=== PATIENT | male | born 1930 | race African-American/Black ===

== ENCOUNTER 2017-04-05 03:59 | Inpatient (IN) | payer BC, OTHER ==
[~2017-04-05] VITALS: Ht 170.2 cm; Wt 96.6 kg
[~2017-04-05 03:59] MED LIST: ASPI-1073 PO; FURO-151 PO; LISI-604 PO; LOSA50TA3 PO; PLAVIX PO; POTA-9 PO; SIMV40TA5 PO; TAMS-11 PO
[2017-04-05] MEDS ORDERED: METHYLPREDNISOLONE SOD SUCC 125 MG/2 ML VIAL IV SCH (04:52)
[2017-04-05] MEDS ORDERED: IPRATROPIUM BROMIDE (0.02%) 0.5MG/2.5ML NEB HHN SCH (04:52)
[2017-04-05] MEDS ORDERED: ALBUTEROL (0.083%) 2.5MG/3ML NEB HHN SCH (04:52)
[2017-04-05] MEDS ORDERED: ALBUTEROL (0.5%) 2.5MG/0.5ML NEB HHN ONE (05:11)
[2017-04-05 05:44] LABS: EOSINOPHILS % 6.2 % (0.0-5.0); HEMATOCRIT. 33.5 % (42.0-52.0); HEMOGLOBIN. 11.2 g/dL (14.0-18.0); LYMPHOCYTES % 12.3 % (20.0-50.0); MEAN CORPUSCULAR VOLUME 83.7 fL (80.0-94.0); MEAN PLATELET VOLUME 7.7 fl (7.4-10.4); MONOCYTES % 11.2 % (2.0-8.0); NEUTROPHILS % 69.3 % (40.0-76.0); PLATELET 223 x1000/uL (130-400); RED BLOOD CELL COUNT 4.01 mill/uL (4.7-6.1); RED CELL DISTRIBUTION WIDTH 16.2 % (11.6-14.6)
[2017-04-05 06:02] LABS: CARBON DIOXIDE 27 mEq/L (21-32); CHLORIDE 108 mEq/L (98-107); TROPONIN I < 0.02 ng/mL (0.00-0.04)
[2017-04-05 06:17] LABS: BG BASE EXCESS 0.4 mmol/L (-2.0-2.0); BG CARBOXYHEMOGLOBIN 0.3 % (0.5-1.5); BG DEOXYHEMOGLOBIN 3.3 % (0.0-5.0); BG FRACTION INSPIRED OXYGEN 28; BG HCO3 ACT 24.6 mmol/L (22.0-26.0); BG METHEMOGLOBIN 0.1 % (0.0-1.5); BG OXYGEN SATURATION 96.7 % (92.0-98.5); BG OXYHEMOGLOBIN 96.3 % (94.0-97.0); BG PCO2 38.1 mmHg (35.0-45.0); BG PH 7.428 (7.350-7.450); BG PO2 91.7 mmHg (75.0-100.0); BG SAMPLE SITE RIGHT RADIAL; BG TOTAL HEMOGLOBIN 11.9 g/dL (12.0-18.0); BG VENT MODE NASAL CANNULA
[2017-04-05] MEDS: IPRATROPIUM/ALBUTEROL 0.5-3(2.5)MG/3ML NEB HHN SCH ×5 (09:20→23:47)
[2017-04-05 10:25] VITALS: BP 152/84
[2017-04-05] MEDS ORDERED: P20 PO (11:26)
[2017-04-05] MEDS ORDERED: CLOP75TA33 PO (11:26)
[2017-04-05] MEDS ORDERED: DOCU-138 PO (11:26)
[2017-04-05] MEDS ORDERED: MOME13HF2 INH (11:26)
[2017-04-05] MEDS ORDERED: PROCARDIA XL PO (11:26)
[2017-04-05] MEDS ORDERED: ASPI-1159 PO (11:26)
[2017-04-05] MEDS ORDERED: CLONIDINE 0.1MG TABLET PO PRN (15:00)
[2017-04-05] MEDS ORDERED: ACETAMINOPHEN 325MG TABLET PO PRN (15:00)
[2017-04-05] MEDS ORDERED: HYDROCODONE/ACETAMINOPHEN 5/325MG TABLET PO PRN (15:00)
[2017-04-05] MEDS ORDERED: ONDANSETRON HCL 4MG/2ML VIAL IV PRN (15:00)
[2017-04-05] MEDS ORDERED: IPRATROPIUM/ALBUTEROL 0.5-3(2.5)MG/3ML NEB INH PRN (15:00)
[2017-04-05 16:00] VITALS: BP 157/78
[2017-04-05 20:00] VITALS: BP 162/91
[2017-04-05] MEDS ORDERED: RAMI10CA19 PO (20:49)
[2017-04-05] MEDS ORDERED: FURO-152 PO (20:49)
[2017-04-05] MEDS ORDERED: ENOXAPARIN 40MG/0.4ML SYR SUBCUT SCH (21:00)
[2017-04-05] MEDS: LOSARTAN POTASSIUM 50 MG TABLET PO SCH (22:56)
[2017-04-05] MEDS: FUROSEMIDE 40MG/4ML VIAL IVP SCH (22:57)
[2017-04-05 23:25] LABS: CREATINE KINASE 225 IU/L (39-308); TROPONIN I < 0.02 ng/mL (0.00-0.04)
[2017-04-06] VITALS: BP 156/86
[2017-04-06] MEDS: IPRATROPIUM/ALBUTEROL 0.5-3(2.5)MG/3ML NEB HHN SCH ×4 (02:54→17:10)
[2017-04-06 04:00] VITALS: BP 142/78
[2017-04-06 07:28] LABS: CREATINE KINASE 239 IU/L (39-308); HDL CHOLESTEROL 64 mg/dL (40-59); LDL CHOLESTEROL 80 mg/dL (5-100); T4 FREE 0.93 ng/dL (0.76-1.46); TROPONIN I < 0.02 ng/mL (0.00-0.04)
[2017-04-06 07:58] LABS: HEMATOCRIT. 29.2 % (42.0-52.0); HEMOGLOBIN. 9.8 g/dL (14.0-18.0); MEAN CORPUSCULAR HEMOGLOBIN 28.2 pg (28.0-32.0); MEAN CORPUSCULAR VOLUME 84.4 fL (80.0-94.0); MEAN PLATELET VOLUME 8.5 fl (7.4-10.4); PLATELET 215 x1000/uL (130-400); RED BLOOD CELL COUNT 3.46 mill/uL (4.7-6.1); RED CELL DISTRIBUTION WIDTH 16.2 % (11.6-14.6)
[2017-04-06 08:00] VITALS: BP 142/79
[2017-04-06] MEDS ORDERED: PREDNISONE 20MG TABLET PO SCH ×2 (09:00→12:00)
[2017-04-06] MEDS ORDERED: POTASSIUM CHLORIDE 20MEQ TABLET SR PO SCH (09:00)
[2017-04-06] MEDS ORDERED: ASPIRIN 81MG TABLET PO SCH (09:00)
[2017-04-06] MEDS ORDERED: TAMSULOSIN HCL 0.4MG SR CAPSULE PO SCH (09:00)
[2017-04-06] MEDS: FUROSEMIDE 40MG/4ML VIAL IVP SCH (10:17)
[2017-04-06] MEDS: LOSARTAN POTASSIUM 50 MG TABLET PO SCH (10:18)
[2017-04-06 12:00] VITALS: BP 126/65
[2017-04-06] MEDS ORDERED: AZITHROMYCIN 500 MG TABLET PO SCH (12:00)
[2017-04-06 13:35] LABS: BG BASE EXCESS 1.8 mmol/L (-2.0-2.0); BG CARBOXYHEMOGLOBIN 0.3 % (0.5-1.5); BG DEOXYHEMOGLOBIN 5.9 % (0.0-5.0); BG FRACTION INSPIRED OXYGEN 21; BG HCO3 ACT 25.9 mmol/L (22.0-26.0); BG METHEMOGLOBIN 0.2 % (0.0-1.5); BG OXYGEN SATURATION 94.1 % (92.0-98.5); BG OXYHEMOGLOBIN 93.6 % (94.0-97.0); BG PCO2 38.9 mmHg (35.0-45.0); BG PH 7.442 (7.350-7.450); BG PO2 69.7 mmHg (75.0-100.0); BG SAMPLE SITE RIGHT RADIAL; BG TOTAL HEMOGLOBIN 12.3 g/dL (12.0-18.0); BG VENT MODE ROOM AIR
[2017-04-06 16:00] VITALS: BP 140/66
[2017-04-06 18:23] VITALS: BP 149/69
[2017-04-07 10:09] LABS: PLATELET ESTIMATE NORMAL
== END 2017-04-06 18:37 | disposition home health service (06) | DRG 682 ==
LOC: ER 03:59 → 7WST 05:50 → ENRESERV 09:16
PROVIDERS: ADMIT Internal Medicine; ATTEND Internal Medicine
DX: N17.9 Acute kidney failure, unspecified (principal); I50.33 Acute on chronic diastolic (congestive) heart failure; J44.1 Chronic obstructive pulmonary disease with (acute) exacerbation; D64.9 Anemia, unspecified; I11.0 Hypertensive heart disease with heart failure; E87.6 Hypokalemia; I87.8 Other specified disorders of veins; I25.10 Atherosclerotic heart disease of native coronary artery without angina pectoris; Z79.82 Long term (current) use of aspirin; Z79.899 Other long term (current) drug therapy; Z95.5 Presence of coronary angioplasty implant and graft
CPT/HCPCS: 36415; 36600; 71010; 80048; 80053; 80061; 82375; 82550; 82805; 83605; 83880; 84439; 84443; 84484; 85025; 87040; 93005; 94640; 94664; 96374; 99291; J1650; J1940; J2405; J2930; J7512; J7611; J7620

== ENCOUNTER 2018-10-11 15:34 | Inpatient (IN) | payer BC ==
[~2018-10-11] VITALS: Ht 175.3 cm; Wt 108.9 kg
[~2018-10-11 15:34] MED LIST changes: +CLOP75TA33 PO; +DOCU-138 PO; +MOME13HF2 INH; -PLAVIX PO; +PROCARDIA XL PO; +RAMI10CA19 PO
[2018-10-11] MEDS ORDERED: ASPIRIN 81MG TABLET PO ONE (15:45)
[2018-10-11] MEDS ORDERED: NITROGLYCERIN 0.4MG TABLET SL SL PRN (15:45)
[2018-10-11 15:59] LABS: BG BILEVEL POS AIRWAY PRESSURE 16/5; BG CARBOXYHEMOGLOBIN 0.6 % (0.5-1.5); BG DEOXYHEMOGLOBIN 1.2 % (0.0-5.0); BG FRACTION INSPIRED OXYGEN 50; BG HCO3 ACT 25.1 mmol/L (22.0-26.0); BG METHEMOGLOBIN 0.1 % (0.0-1.5); BG OXYGEN SATURATION 98.8 % (92.0-98.5); BG OXYHEMOGLOBIN 98.1 % (94.0-97.0); BG PCO2 38.3 mmHg (35.0-45.0); BG PH 7.435 (7.350-7.450); BG SAMPLE SITE RIGHT RADIAL; BG TOTAL HEMOGLOBIN 12.7 g/dL (12.0-18.0); BG VENT MODE MASK - BIPAP
[2018-10-11 16:03] LABS: CHLORIDE 110 mEq/L (98-107)
[2018-10-11 16:08] LABS: BASOPHILS % 1.2 % (0.0-2.0); EOSINOPHILS % 10.3 % (0.0-5.0); HEMATOCRIT. 38.8 % (42.0-52.0); HEMOGLOBIN. 12.8 g/dL (14.0-18.0); LYMPHOCYTES % 15.5 % (20.0-50.0); MEAN CORPUSCULAR HEMOGLOBIN 29.4 pg (28.0-32.0); MEAN CORPUSCULAR VOLUME 88.9 fL (80.0-94.0); MEAN PLATELET VOLUME 8.4 fl (7.4-10.4); PLATELET 260 x1000/uL (130-400); RED BLOOD CELL COUNT 4.37 mill/uL (4.7-6.1); RED CELL DISTRIBUTION WIDTH 15.8 % (11.6-14.6)
[2018-10-11] MEDS ORDERED: ALBUTEROL (0.083%) 2.5MG/3ML NEB HHN ONE (17:15)
[2018-10-11] MEDS ORDERED: METHYLPREDNISOLONE SOD SUCC 125 MG/2 ML VIAL IV ONE (17:15)
[2018-10-11] MEDS ORDERED: SODIUM CHLORIDE 0.9% 1,000 ML IV ONE (18:00)
[2018-10-11] MEDS ORDERED: DILTIAZEM HCL 5MG/ML 5ML VIAL IV ONE (18:15)
[2018-10-11] MEDS ORDERED: DILTIAZEM HCL 90MG TABLET PO ONE (18:30)
[2018-10-11] MEDS ORDERED: DILTIAZEM HCL 90MG TABLET PO NR (20:00)
[2018-10-11 22:43] VITALS: BP 162/90
[2018-10-12] VITALS (12 sets, daily range): BP systolic 103–171; BP diastolic 63–118
[2018-10-12] MEDS ORDERED: TEMAZEPAM 15MG CAPSULE PO PRN
[2018-10-12] MEDS ORDERED: RAMI2.5C10 MT (00:35)
[2018-10-12] MEDS ORDERED: SIMV40TA5 MT (00:35)
[2018-10-12] MEDS ORDERED: FURO40TA5 PO (00:35)
[2018-10-12] MEDS ORDERED: CLOP75TA33 MT (00:35)
[2018-10-12] MEDS ORDERED: RAMI10CA19 PO (00:54)
[2018-10-12] MEDS ORDERED: LEVOFLOXACIN 500MG PREMIX 100 ML IV SCH ×2 (01:00)
[2018-10-12] MEDS: METHYLPREDNISOLONE SOD SUCC 40 MG/ML VIAL IV SCH ×4 (01:04→21:25)
[2018-10-12] MEDS: CLONIDINE 0.1MG TABLET PO PRN (03:43)
[2018-10-12] MEDS: IPRATROPIUM/ALBUTEROL 0.5-3(2.5)MG/3ML NEB HHN SCH ×5 (04:52→21:28)
[2018-10-12] MEDS ORDERED: MEDICATION NOT ON FORMULARY EA (Ramipril 10 MG) PO SCH (09:00)
[2018-10-12] MEDS ORDERED: MEDICATION NOT ON FORMULARY EA (Clopidogrel Bisulfate (Clopidogrel) 75 MG) PO SCH (09:00)
[2018-10-12] MEDS ORDERED: MEDICATION NOT ON FORMULARY EA (Furosemide 40 MG) PO SCH (09:00)
[2018-10-12] MEDS ORDERED: ASPIRIN 81 MG PO SCH (09:00)
[2018-10-12] MEDS ORDERED: PROCARDIA 60 MG PO SCH (09:00)
[2018-10-12] MEDS: ASPIRIN 81MG TABLET PO SCH (09:38)
[2018-10-12] MEDS: CLOPIDOGREL 75MG TABLET PO SCH (09:38)
[2018-10-12] MEDS: ENOXAPARIN 40MG/0.4ML SYR SUBCUT SCH (09:38)
[2018-10-12] MEDS: POTASSIUM CHLORIDE 8 MEQ TABLET.SA PO SCH (09:38)
[2018-10-12] MEDS: FUROSEMIDE 40MG TABLET PO SCH ×2 (09:39→21:25)
[2018-10-12] MEDS: NIFEDIPINE XL 60MG TAB PO SCH (09:39)
[2018-10-12] MEDS: LISINOPRIL 40MG TABLET PO SCH (09:39)
[2018-10-12] MEDS ORDERED: MEDICATION NOT ON FORMULARY EA (Simvastatin 40 MG) PO SCH (21:00)
[2018-10-12] MEDS: ATORVASTATIN CALCIUM 20MG TABLET PO SCH (21:25)
[2018-10-12] MEDS: LEVOFLOXACIN 250MG PREMIX 50 ML IV SCH (21:26)
[2018-10-13] VITALS (13 sets, daily range): BP systolic 126–167; BP diastolic 72–100
[2018-10-13] MEDS: IPRATROPIUM/ALBUTEROL 0.5-3(2.5)MG/3ML NEB HHN SCH ×6 (00:54→20:29)
[2018-10-13] MEDS: METHYLPREDNISOLONE SOD SUCC 40 MG/ML VIAL IV SCH ×2 (05:19→14:54)
[2018-10-13] MEDS ORDERED: NA PHOS,M-B/NA PHOS,DI-BA ENEMA 118ML PR SCH (08:15)
[2018-10-13] MEDS: LISINOPRIL 40MG TABLET PO SCH (09:03)
[2018-10-13] MEDS: NIFEDIPINE XL 60MG TAB PO SCH (09:03)
[2018-10-13] MEDS: CLOPIDOGREL 75MG TABLET PO SCH (09:04)
[2018-10-13] MEDS: DOCUSATE SODIUM 100MG CAPSULE PO SCH ×2 (09:04→17:29)
[2018-10-13] MEDS: FUROSEMIDE 40MG TABLET PO SCH ×2 (09:04→21:54)
[2018-10-13] MEDS: POTASSIUM CHLORIDE 8 MEQ TABLET.SA PO SCH (09:04)
[2018-10-13] MEDS: ASPIRIN 81MG TABLET PO SCH (09:04)
[2018-10-13] MEDS: ENOXAPARIN 40MG/0.4ML SYR SUBCUT SCH (09:05)
[2018-10-13] MEDS: CLONIDINE 0.1MG TABLET PO PRN (17:29)
[2018-10-13] MEDS: ATORVASTATIN CALCIUM 20MG TABLET PO SCH (21:54)
[2018-10-13] MEDS: LEVOFLOXACIN 250MG PREMIX 50 ML IV SCH (21:54)
[2018-10-13] MEDS: CLONIDINE 0.1MG TABLET PO SCH (22:07)
[2018-10-14] VITALS (12 sets, daily range): BP systolic 117–161; BP diastolic 60–107
[2018-10-14] MEDS: IPRATROPIUM/ALBUTEROL 0.5-3(2.5)MG/3ML NEB HHN SCH ×6 (00:17→20:47)
[2018-10-14] MEDS: METHYLPREDNISOLONE SOD SUCC 40 MG/ML VIAL IV SCH ×2 (00:43→12:38)
[2018-10-14] MEDS: CLONIDINE 0.1MG TABLET PO SCH ×3 (05:33→23:04)
[2018-10-14 05:49] LABS: HEMATOCRIT. 36.2 % (42.0-52.0); MEAN CORPUSCULAR HEMOGLOBIN 29.4 pg (28.0-32.0); MEAN CORPUSCULAR VOLUME 88.7 fL (80.0-94.0); MEAN PLATELET VOLUME 8.8 fl (7.4-10.4); PLATELET 246 x1000/uL (130-400); RED BLOOD CELL COUNT 4.09 mill/uL (4.7-6.1); RED CELL DISTRIBUTION WIDTH 15.7 % (11.6-14.6)
[2018-10-14] MEDS: ASPIRIN 81MG TABLET PO SCH (08:30)
[2018-10-14] MEDS: CLOPIDOGREL 75MG TABLET PO SCH (08:30)
[2018-10-14] MEDS: DOCUSATE SODIUM 100MG CAPSULE PO SCH ×2 (08:30→17:45)
[2018-10-14] MEDS: POTASSIUM CHLORIDE 8 MEQ TABLET.SA PO SCH (08:30)
[2018-10-14] MEDS: ENOXAPARIN 40MG/0.4ML SYR SUBCUT SCH (08:30)
[2018-10-14] MEDS: FUROSEMIDE 40MG TABLET PO SCH ×2 (08:30→20:36)
[2018-10-14] MEDS: NIFEDIPINE XL 60MG TAB PO SCH (08:30)
[2018-10-14] MEDS: LISINOPRIL 40MG TABLET PO SCH (08:31)
[2018-10-14 10:26] LABS: PLATELET ESTIMATE NORMAL
[2018-10-14] MEDS: ATORVASTATIN CALCIUM 20MG TABLET PO SCH (20:36)
[2018-10-14] MEDS: LEVOFLOXACIN 250MG PREMIX 50 ML IV SCH (20:37)
[2018-10-15] VITALS (15 sets, daily range): BP systolic 108–158; BP diastolic 64–98
[2018-10-15] MEDS: METHYLPREDNISOLONE SOD SUCC 40 MG/ML VIAL IV SCH ×2 (00:10→12:10)
[2018-10-15] MEDS: IPRATROPIUM/ALBUTEROL 0.5-3(2.5)MG/3ML NEB HHN SCH ×5 (01:21→15:52)
[2018-10-15] MEDS: CLONIDINE 0.1MG TABLET PO SCH ×2 (06:37→13:56)
[2018-10-15 07:02] LABS: HEMATOCRIT. 37.8 % (42.0-52.0); HEMOGLOBIN. 12.4 g/dL (14.0-18.0); MEAN CORPUSCULAR HEMOGLOBIN 29.3 pg (28.0-32.0); MEAN CORPUSCULAR VOLUME 89.2 fL (80.0-94.0); MEAN PLATELET VOLUME 8.8 fl (7.4-10.4); PLATELET 226 x1000/uL (130-400); RED BLOOD CELL COUNT 4.23 mill/uL (4.7-6.1); RED CELL DISTRIBUTION WIDTH 16.2 % (11.6-14.6)
[2018-10-15 07:10] LABS: CHLORIDE 108 mEq/L (98-107)
[2018-10-15] MEDS: FUROSEMIDE 40MG TABLET PO SCH (07:52)
[2018-10-15] MEDS: POTASSIUM CHLORIDE 8 MEQ TABLET.SA PO SCH (07:52)
[2018-10-15] MEDS: DOCUSATE SODIUM 100MG CAPSULE PO SCH ×2 (07:52→17:00)
[2018-10-15] MEDS: CLOPIDOGREL 75MG TABLET PO SCH (07:52)
[2018-10-15] MEDS: ASPIRIN 81MG TABLET PO SCH (07:52)
[2018-10-15] MEDS: LISINOPRIL 40MG TABLET PO SCH (07:53)
[2018-10-15] MEDS: ENOXAPARIN 40MG/0.4ML SYR SUBCUT SCH (07:53)
[2018-10-15] MEDS: NIFEDIPINE XL 60MG TAB PO SCH (07:53)
[2018-10-16 05:00] LABS: PLATELET ESTIMATE NORMAL
== END 2018-10-15 19:05 | disposition home or self-care (01) | DRG 193 ==
LOC: ER 15:34 → EDBEDREQTM 17:11 → EDBEDREQ 17:11 → 3WST 17:49 → EDBEDREQSVC 17:55 → ENRESERV 20:55 → 3WST 22:34
PROVIDERS: ADMIT Internal Medicine; ATTEND Internal Medicine
PROC: 5A09357 Assistance with Respiratory Ventilation, Less than 24 Consecutive Hours, Continuous Positive Airway Pressure (ICD-10-PCS; principal; 2018-10-11)
DX: J18.9 Pneumonia, unspecified organism (principal); J96.20 Acute and chronic respiratory failure, unspecified whether with hypoxia or hypercapnia; I13.0 Hypertensive heart and chronic kidney disease with heart failure and stage 1 through stage 4 chronic kidney disease, or unspecified chronic kidney disease; J44.1 Chronic obstructive pulmonary disease with (acute) exacerbation; E66.2 Morbid (severe) obesity with alveolar hypoventilation; I50.32 Chronic diastolic (congestive) heart failure; J06.9 Acute upper respiratory infection, unspecified; E78.5 Hyperlipidemia, unspecified; I25.10 Atherosclerotic heart disease of native coronary artery without angina pectoris; N18.9 Chronic kidney disease, unspecified; Z95.5 Presence of coronary angioplasty implant and graft; Z99.81 Dependence on supplemental oxygen; Z68.35 Body mass index [BMI] 35.0-35.9, adult; Z79.82 Long term (current) use of aspirin; Z79.899 Other long term (current) drug therapy; Z79.02 Long term (current) use of antithrombotics/antiplatelets
CPT/HCPCS: 36415; 36600; 71045; 80048; 82375; 82805; 83735; 83880; 84484; 93005; 93970; 94640; 94660; 96374; 96375; 97162; 99285; J1650; J1956; J2920; J2930; J3490; J7030; J7050; J7620

== ENCOUNTER 2018-10-18 16:45 | Emergency (ER) | payer BC ==
[~2018-10-18] VITALS: Ht 175.3 cm; Wt 126.0 kg
[~2018-10-18 16:45] MED LIST changes: -FURO-151 PO; +FURO40TA5 PO; -LOSA50TA3 PO; +SIMV40TA5 MT; -SIMV40TA5 PO
[2018-10-18] MEDS ORDERED: SODIUM CHLORIDE 0.9% 1,000 ML IV ONE (18:26)
[2018-10-18 19:25] LABS: HEMATOCRIT. 40.2 % (42.0-52.0); HEMOGLOBIN. 13.2 g/dL (14.0-18.0); MEAN CORPUSCULAR HEMOGLOBIN 29.9 pg (28.0-32.0); MEAN CORPUSCULAR VOLUME 90.6 fL (80.0-94.0); MEAN PLATELET VOLUME 8.8 fl (7.4-10.4); PLATELET 187 x1000/uL (130-400); RED BLOOD CELL COUNT 4.44 mill/uL (4.7-6.1); RED CELL DISTRIBUTION WIDTH 16.1 % (11.6-14.6)
[2018-10-18 19:28] LABS: CHLORIDE 106 mEq/L (98-107)
[2018-10-18 19:32] LABS: INR 1.2; PROTHROMBIN TIME 12.2 sec (9.1-11.1)
[2018-10-18] MEDS ORDERED: ALBUTEROL (0.083%) 2.5MG/3ML NEB HHN ONE (20:30)
[2018-10-18] MEDS ORDERED: METHYLPREDNISOLONE SOD SUCC 125 MG/2 ML VIAL IV ONE (20:30)
[2018-10-18 20:37] LABS: PLATELET ESTIMATE NORMAL
[2018-10-18 23:48] VITALS: BP 163/87
== END 2018-10-19 | disposition short-term general hospital (02) ==
LOC: ER 16:45 → CANBEDREQ 10-19 00:30
DX: R55 Syncope and collapse (principal); J45.901 Unspecified asthma with (acute) exacerbation; I11.9 Hypertensive heart disease without heart failure; I51.9 Heart disease, unspecified; Z98.61 Coronary angioplasty status; Z79.899 Other long term (current) drug therapy
CPT/HCPCS: 36415; 70450; 71045; 80053; 84484; 85025; 85610; 86850; 86900; 86901; 93005; 94640; 96361; 96374; 99291; J2930; J7030; J7611

== ENCOUNTER 2018-11-30 19:02 | Inpatient (IN) | payer BC ==
[~2018-11-30] VITALS: Ht 175.3 cm; Wt 87.5 kg
[2018-11-30 22:35] LABS: BASOPHILS % 0.9 % (0.0-2.0); EOSINOPHILS % 3.4 % (0.0-5.0); HEMATOCRIT. 36.3 % (42.0-52.0); HEMOGLOBIN. 11.8 g/dL (14.0-18.0); LYMPHOCYTES % 12.6 % (20.0-50.0); MEAN CORPUSCULAR HEMOGLOBIN 29.7 pg (28.0-32.0); MEAN CORPUSCULAR VOLUME 91.1 fL (80.0-94.0); MEAN PLATELET VOLUME 8.1 fl (7.4-10.4); MONOCYTES % 7.7 % (2.0-8.0); NEUTROPHILS % 75.4 % (40.0-76.0); PLATELET 306 x1000/uL (130-400); RED BLOOD CELL COUNT 3.99 mill/uL (4.7-6.1); RED CELL DISTRIBUTION WIDTH 16.5 % (11.6-14.6)
[2018-11-30 22:41] LABS: CHLORIDE 112 mEq/L (98-107)
[2018-11-30 23:04] LABS: *AMPHETAMINES SCREEN URINE NEGATIVE (NEGATIVE); *BARBITURATES SCREEN URINE NEGATIVE (NEGATIVE); *BENZODIAZEPINES SCREEN URINE NEGATIVE (NEGATIVE); *COCAINE SCREEN URINE NEGATIVE (NEGATIVE); METHADONE URINE SCREEN NEGATIVE (NEGATIVE); OPIATES URINE SCREEN NEGATIVE (NEGATIVE)
[2018-11-30 23:05] LABS: CANNABINOID URINE SCREEN NEGATIVE (NEGATIVE); PHENCYCLIDINE URINE SCREEN NEGATIVE (NEGATIVE)
[2018-12-01] VITALS: BP 165/90
[2018-12-01] MEDS ORDERED: IPRATROPIUM/ALBUTEROL 0.5-3(2.5)MG/3ML NEB HHN PRN (02:15)
[2018-12-01 04:00] VITALS: BP 162/76
[2018-12-01] MEDS: MAGNESIUM HYDROXIDE 400MG/5ML 30ML UDC PO PRN ×2 (05:59→17:45)
[2018-12-01] MEDS: FUROSEMIDE 40MG TABLET PO SCH ×2 (05:59→17:37)
[2018-12-01 06:45] LABS: BASOPHILS % 1.3 % (0.0-2.0); EOSINOPHILS % 11.3 % (0.0-5.0); HEMATOCRIT. 28.6 % (42.0-52.0); HEMOGLOBIN. 9.5 g/dL (14.0-18.0); LYMPHOCYTES % 15.3 % (20.0-50.0); MEAN PLATELET VOLUME 8.1 fl (7.4-10.4); MONOCYTES % 10.3 % (2.0-8.0); NEUTROPHILS % 61.8 % (40.0-76.0); PLATELET 291 x1000/uL (130-400); RED BLOOD CELL COUNT 3.17 mill/uL (4.7-6.1); RED CELL DISTRIBUTION WIDTH 16.8 % (11.6-14.6)
[2018-12-01 07:31] LABS: CHLORIDE 111 mEq/L (98-107)
[2018-12-01 08:00] VITALS: BP 165/84
[2018-12-01] MEDS: IPRATROPIUM/ALBUTEROL 0.5-3(2.5)MG/3ML NEB HHN SCH ×4 (08:22→21:13)
[2018-12-01] MEDS ORDERED: MEDICATION NOT ON FORMULARY EA (Ramipril 10 MG) PO SCH (09:00)
[2018-12-01] MEDS ORDERED: MEDICATION NOT ON FORMULARY EA (Furosemide 40 MG) PO SCH (09:00)
[2018-12-01] MEDS ORDERED: HEPARIN 5000 UNITS/ML VIAL SUBCUT SCH (09:00)
[2018-12-01] MEDS ORDERED: MEDICATION NOT ON FORMULARY EA (Lisinopril 20 MG) PO SCH (09:00)
[2018-12-01] MEDS: POTASSIUM CHLORIDE 8 MEQ TABLET.SA PO SCH (09:09)
[2018-12-01] MEDS: TAMSULOSIN HCL 0.4MG SR CAPSULE PO SCH (09:11)
[2018-12-01] MEDS: DOCUSATE SODIUM 100MG CAPSULE PO SCH (09:11)
[2018-12-01] MEDS: CLOPIDOGREL 75MG TABLET PO SCH (09:12)
[2018-12-01] MEDS: LISINOPRIL 40MG TABLET PO SCH (09:12)
[2018-12-01] MEDS: NIFEDIPINE XL 60MG TAB PO SCH (09:13)
[2018-12-01 12:00] VITALS: BP 142/66
[2018-12-01 16:00] VITALS: BP 139/61
[2018-12-01] MEDS ORDERED: SODIUM CHLORIDE 0.9% 500 ML IV ONE (18:00)
[2018-12-01 20:00] VITALS: BP 155/76
[2018-12-01] MEDS: ATORVASTATIN CALCIUM 40MG TABLET PO SCH (22:11)
[2018-12-01] MEDS: ENOXAPARIN 40MG/0.4ML SYR SUBCUT SCH (22:12)
[2018-12-02] VITALS (7 sets, daily range): BP systolic 119–198; BP diastolic 70–95
[2018-12-02 06:47] LABS: CHLORIDE 111 mEq/L (98-107)
[2018-12-02 06:59] LABS: BASOPHILS % 1.6 % (0.0-2.0); EOSINOPHILS % 13.9 % (0.0-5.0); HEMATOCRIT. 26.5 % (42.0-52.0); HEMOGLOBIN. 8.8 g/dL (14.0-18.0); LYMPHOCYTES % 18.6 % (20.0-50.0); MEAN CORPUSCULAR VOLUME 89.8 fL (80.0-94.0); MEAN PLATELET VOLUME 8.1 fl (7.4-10.4); MONOCYTES % 10.7 % (2.0-8.0); NEUTROPHILS % 55.2 % (40.0-76.0); PLATELET 252 x1000/uL (130-400); RED BLOOD CELL COUNT 2.95 mill/uL (4.7-6.1); RED CELL DISTRIBUTION WIDTH 16.8 % (11.6-14.6)
[2018-12-02] MEDS: IPRATROPIUM/ALBUTEROL 0.5-3(2.5)MG/3ML NEB HHN SCH ×2 (08:58→22:37)
[2018-12-02] MEDS: NIFEDIPINE XL 60MG TAB PO SCH ×2 (09:00→09:14)
[2018-12-02] MEDS: CLOPIDOGREL 75MG TABLET PO SCH ×2 (09:00→09:14)
[2018-12-02] MEDS: POTASSIUM CHLORIDE 8 MEQ TABLET.SA PO SCH ×2 (09:00→09:14)
[2018-12-02] MEDS: TAMSULOSIN HCL 0.4MG SR CAPSULE PO SCH ×2 (09:00→09:15)
[2018-12-02] MEDS: DOCUSATE SODIUM 100MG CAPSULE PO SCH ×2 (09:00→09:14)
[2018-12-02] MEDS: LISINOPRIL 40MG TABLET PO SCH ×2 (09:00→09:15)
[2018-12-02] MEDS ORDERED: POTASSIUM CHLORIDE INJ 40 MEQ in DEXT 5% WATER 250 ML IV NR (12:30)
[2018-12-02] MEDS ORDERED: LEVOFLOXACIN 500MG PREMIX 100 ML IV SCH (14:30)
[2018-12-02] MEDS ORDERED: AMLODIPINE 5MG TABLET PO SCH (17:00)
[2018-12-02] MEDS: PANTOT AC/MIN OIL/PET HY-PHL OINT (AQUAPHOR) TOP SCH (17:31)
[2018-12-02] MEDS: SODIUM CHLORIDE 0.45% 1,000 ML IV SCH (17:32)
[2018-12-02] MEDS: LEVOFLOXACIN 500MG PREMIX 100 ML IV SCH (17:33)
[2018-12-02] MEDS: HYDRALAZINE 20MG/ML VIAL IV PRN (17:33)
[2018-12-02] MEDS: ENOXAPARIN 40MG/0.4ML SYR SUBCUT SCH (17:36)
[2018-12-02] MEDS ORDERED: TRAMADOL 50MG TABLET PO PRN (18:45)
[2018-12-02] MEDS ORDERED: NA PHOS,M-B/NA PHOS,DI-BA ENEMA 118ML PR NR (19:45)
[2018-12-02] MEDS: ATORVASTATIN CALCIUM 40MG TABLET PO SCH (21:22)
[2018-12-03] VITALS: BP 174/99
[2018-12-03] MEDS: HYDRALAZINE 20MG/ML VIAL IV PRN (01:18)
[2018-12-03 04:00] VITALS: BP 162/89
[2018-12-03 06:40] LABS: HEMATOCRIT. 32.2 % (42.0-52.0); HEMOGLOBIN. 10.6 g/dL (14.0-18.0); MEAN CORPUSCULAR HEMOGLOBIN 29.6 pg (28.0-32.0); MEAN CORPUSCULAR VOLUME 89.9 fL (80.0-94.0); MEAN PLATELET VOLUME 7.8 fl (7.4-10.4); PLATELET 293 x1000/uL (130-400); RED BLOOD CELL COUNT 3.58 mill/uL (4.7-6.1); RED CELL DISTRIBUTION WIDTH 16.6 % (11.6-14.6)
[2018-12-03 06:46] LABS: INR 1.4; PROTHROMBIN TIME 14.6 sec (9.6-11.0)
[2018-12-03 06:51] LABS: CHLORIDE 106 mEq/L (98-107)
[2018-12-03] MEDS: IPRATROPIUM/ALBUTEROL 0.5-3(2.5)MG/3ML NEB HHN SCH ×2 (07:33→20:57)
[2018-12-03 08:00] VITALS: BP 177/83
[2018-12-03] MEDS: POTASSIUM CHLORIDE 8 MEQ TABLET.SA PO SCH (10:42)
[2018-12-03] MEDS: DOCUSATE SODIUM 100MG CAPSULE PO SCH (10:42)
[2018-12-03] MEDS: LISINOPRIL 40MG TABLET PO SCH (10:43)
[2018-12-03] MEDS: CLOPIDOGREL 75MG TABLET PO SCH (10:43)
[2018-12-03] MEDS: TAMSULOSIN HCL 0.4MG SR CAPSULE PO SCH (10:43)
[2018-12-03] MEDS: NIFEDIPINE XL 60MG TAB PO SCH (10:44)
[2018-12-03] MEDS: CLONIDINE 0.1MG TABLET PO SCH ×2 (10:45→20:29)
[2018-12-03] MEDS ORDERED: POTASSIUM CHLORIDE INJ 40 MEQ in DEXT 5% WATER 250 ML IV SCH (11:00)
[2018-12-03] MEDS: PANTOT AC/MIN OIL/PET HY-PHL OINT (AQUAPHOR) TOP SCH (11:12)
[2018-12-03] MEDS ORDERED: BISACODYL 10MG SUPP PR NR (11:45)
[2018-12-03] MEDS ORDERED: HYDRALAZINE 20MG/ML VIAL IV NR (11:45)
[2018-12-03] MEDS ORDERED: HYDRALAZINE 20MG/ML VIAL IV PRN (11:45)
[2018-12-03] MEDS ORDERED: BISACODYL 10MG SUPP PR PRN (11:45)
[2018-12-03 12:00] VITALS: BP 168/83
[2018-12-03 12:10] LABS: PLATELET ESTIMATE NORMAL
[2018-12-03] MEDS: NITROGLYCERIN OINT 1GM/INCH UDPKT TD SCH ×2 (14:09→22:47)
[2018-12-03 16:00] VITALS: BP 139/75
[2018-12-03] MEDS: LEVOFLOXACIN 500MG PREMIX 100 ML IV SCH (18:48)
[2018-12-03] MEDS: ENOXAPARIN 40MG/0.4ML SYR SUBCUT SCH (18:49)
[2018-12-03 20:00] VITALS: BP 137/86
[2018-12-03] MEDS: AMLODIPINE 5MG TABLET PO SCH (20:29)
[2018-12-03] MEDS: ATORVASTATIN CALCIUM 40MG TABLET PO SCH (20:29)
[2018-12-03] MEDS: SODIUM CHLORIDE 0.45% 1,000 ML IV SCH (20:30)
[2018-12-04] VITALS (8 sets, daily range): BP systolic 143–191; BP diastolic 65–98
[2018-12-04] MEDS: NITROGLYCERIN OINT 1GM/INCH UDPKT TD SCH ×3 (06:07→21:47)
[2018-12-04] MEDS: IPRATROPIUM/ALBUTEROL 0.5-3(2.5)MG/3ML NEB HHN SCH ×2 (08:08→20:58)
[2018-12-04] MEDS: LISINOPRIL 40MG TABLET PO SCH ×2 (09:00→12:10)
[2018-12-04] MEDS: TAMSULOSIN HCL 0.4MG SR CAPSULE PO SCH ×2 (09:00→12:38)
[2018-12-04] MEDS: CLOPIDOGREL 75MG TABLET PO SCH ×2 (09:00→12:09)
[2018-12-04] MEDS: DOCUSATE SODIUM 100MG CAPSULE PO SCH ×3 (09:00→12:40)
[2018-12-04] MEDS: POTASSIUM CHLORIDE 8 MEQ TABLET.SA PO SCH ×3 (09:00→12:38)
[2018-12-04] MEDS: NIFEDIPINE XL 60MG TAB PO SCH ×3 (09:00→12:35)
[2018-12-04] MEDS: AMLODIPINE 5MG TABLET PO SCH ×3 (09:00→21:46)
[2018-12-04] MEDS: CLONIDINE 0.1MG TABLET PO SCH ×3 (09:00→21:46)
[2018-12-04] MEDS ORDERED: HYDRALAZINE 20MG/ML VIAL IV SCH (12:45)
[2018-12-04] MEDS: PANTOT AC/MIN OIL/PET HY-PHL OINT (AQUAPHOR) TOP SCH (15:40)
[2018-12-04] MEDS ORDERED: NA PHOS,M-B/NA PHOS,DI-BA ENEMA 118ML PR NR ×2 (15:45→18:30)
[2018-12-04] MEDS ORDERED: LACTULOSE 20G/30ML UDC PO PRN (15:45)
[2018-12-04] MEDS ORDERED: LACTULOSE 20G/30ML UDC PO ONE (15:45)
[2018-12-04 16:22] LABS: BG BASE EXCESS -3.6 mmol/L (-2.0-2.0); BG CARBOXYHEMOGLOBIN 0.3 % (0.5-1.5); BG DEOXYHEMOGLOBIN 3.8 % (0.0-5.0); BG FRACTION INSPIRED OXYGEN 21; BG HCO3 ACT 19.6 mmol/L (22.0-26.0); BG METHEMOGLOBIN 0.2 % (0.0-1.5); BG OXYGEN SATURATION 96.2 % (92.0-98.5); BG OXYHEMOGLOBIN 95.7 % (94.0-97.0); BG PCO2 29.3 mmHg (35.0-45.0); BG PH 7.443 (7.350-7.450); BG PO2 82.1 mmHg (75.0-100.0); BG SAMPLE SITE LEFT RADIAL; BG VENT MODE ROOM AIR
[2018-12-04] MEDS: LEVOFLOXACIN 500MG PREMIX 100 ML IV SCH (18:24)
[2018-12-04] MEDS: ENOXAPARIN 40MG/0.4ML SYR SUBCUT SCH (18:24)
[2018-12-04] MEDS ORDERED: LACTULOSE 20G/30ML UDC PO NR (18:30)
[2018-12-04 21:17] LABS: HEMATOCRIT 32.4 % (42.0-52.0); HEMOGLOBIN 10.8 g/dL (14.0-18.0); MEAN CORPUSCULAR VOLUME 89.6 fL (80.0-94.0); PLATELET 295 x1000/uL (130-400); RED BLOOD CELL COUNT 3.62 mill/uL (4.7-6.1)
[2018-12-04 21:22] LABS: CHLORIDE 105 mEq/L (98-107)
[2018-12-04] MEDS: ATORVASTATIN CALCIUM 40MG TABLET PO SCH (21:46)
[2018-12-05] VITALS: BP_SYST 132; BP_DIAS 85; BP_DIAS 93
[2018-12-05 04:00] VITALS: BP 166/85
[2018-12-05] MEDS: NITROGLYCERIN OINT 1GM/INCH UDPKT TD SCH ×2 (05:03→14:22)
[2018-12-05] MEDS: IPRATROPIUM/ALBUTEROL 0.5-3(2.5)MG/3ML NEB HHN SCH (07:35)
[2018-12-05 08:00] VITALS: BP 135/74
[2018-12-05] MEDS: TAMSULOSIN HCL 0.4MG SR CAPSULE PO SCH (09:13)
[2018-12-05] MEDS: CLOPIDOGREL 75MG TABLET PO SCH (09:13)
[2018-12-05] MEDS: NIFEDIPINE XL 60MG TAB PO SCH (09:13)
[2018-12-05] MEDS: AMLODIPINE 5MG TABLET PO SCH (09:13)
[2018-12-05] MEDS: POTASSIUM CHLORIDE 8 MEQ TABLET.SA PO SCH (09:14)
[2018-12-05] MEDS: CLONIDINE 0.1MG TABLET PO SCH (09:14)
[2018-12-05] MEDS: LISINOPRIL 40MG TABLET PO SCH (09:14)
[2018-12-05] MEDS: PANTOT AC/MIN OIL/PET HY-PHL OINT (AQUAPHOR) TOP SCH (09:52)
[2018-12-05] MEDS ORDERED: POTASSIUM CHLORIDE 20MEQ TABLET SR PO NR (10:33)
[2018-12-05] MEDS ORDERED: POTASSIUM CHLORIDE 20MEQ/PACKET PO NR (11:11)
[2018-12-05 12:00] VITALS: BP 138/89
[2018-12-05 14:49] VITALS: BP 135/75
[2018-12-05 16:00] VITALS: BP 149/79
== END 2018-12-05 17:08 | disposition home or self-care (01) | DRG 725 ==
LOC: ER 19:31 → 7WST 21:35 → EDBEDREQTM 21:37 → EDBEDREQ 21:37 → ENRESERV 21:51
PROVIDERS: ADMIT Internal Medicine; ATTEND Internal Medicine
DX: N40.1 Benign prostatic hyperplasia with lower urinary tract symptoms (principal); I50.43 Acute on chronic combined systolic (congestive) and diastolic (congestive) heart failure; N39.0 Urinary tract infection, site not specified; J44.1 Chronic obstructive pulmonary disease with (acute) exacerbation; E87.6 Hypokalemia; N32.89 Other specified disorders of bladder; D63.8 Anemia in other chronic diseases classified elsewhere; E78.5 Hyperlipidemia, unspecified; E86.0 Dehydration; I25.10 Atherosclerotic heart disease of native coronary artery without angina pectoris; I11.0 Hypertensive heart disease with heart failure; I89.0 Lymphedema, not elsewhere classified; R33.8 Other retention of urine; K59.00 Constipation, unspecified; E78.00 Pure hypercholesterolemia, unspecified; Z91.19 Patient's noncompliance with other medical treatment and regimen; Z79.899 Other long term (current) drug therapy; Z79.82 Long term (current) use of aspirin
CPT/HCPCS: 36415; 36600; 71045; 74018; 74176; 80048; 80305; 82375; 82805; 83605; 83735; 83880; 84153; 84484; 85027; 85651; 92610; 93005; 97162; 99285; J0360; J1644; J1650; J1956; J3480; J7040; J7050; J7060; J7620; A4315; G0103

== ENCOUNTER 2019-09-22 17:49 | Inpatient (IN) | payer BC ==
[~2019-09-22] VITALS: Ht 167.6 cm; Wt 117.9 kg
[~2019-09-22 17:49] MED LIST changes: -RAMI10CA19 PO; +SIMV-46 MT; -SIMV40TA5 MT
[2019-09-22] MEDS ORDERED: VANCOMYCIN 1 G PREMIX 200 ML IV ONE (18:00)
[2019-09-22] MEDS ORDERED: PIPERACILLIN/TAZ 3.375G PREMIX 50 ML IV ONE (18:00)
[2019-09-22 18:24] LABS: BASOPHILS % 0.9 % (0.0-2.0); HEMATOCRIT. 25.4 % (42.0-52.0); HEMOGLOBIN. 8.7 g/dL (14.0-18.0); LYMPHOCYTES % 9.7 % (20.0-50.0); MEAN CORPUSCULAR HEMOGLOBIN 31.4 pg (28.0-32.0); MEAN CORPUSCULAR VOLUME 91.3 fL (80.0-94.0); MEAN PLATELET VOLUME 7.7 fl (7.4-10.4); MONOCYTES % 5.9 % (2.0-8.0); NEUTROPHILS % 75.5 % (40.0-76.0); PLATELET 250 x1000/uL (130-400); RED BLOOD CELL COUNT 2.78 mill/uL (4.7-6.1); RED CELL DISTRIBUTION WIDTH 15.3 % (11.6-14.6)
[2019-09-22 18:31] LABS: CHLORIDE 108 mEq/L (98-107)
[2019-09-22 18:44] LABS: CLARITY URINE CLEAR (CLEAR); COLOR URINE YELLOW (YELLOW); KETONES URINE NEGATIVE (NEGATIVE); LEUKOCYTE ESTERASE URINE NEGATIVE (NEGATIVE); NITRITE URINE NEGATIVE (NEGATIVE); OCCULT BLOOD URINE 2+ (NEGATIVE); PROTEIN URINE 2+ (NEGATIVE); SPECIFIC GRAVITY URINE 1.009 (1.005-1.030); UROBILINOGEN URINE 0.2 E.U./dL (0.2-1.0)
[2019-09-22 21:21] LABS: BG BASE EXCESS 3.1 mmol/L (-2.0-2.0); BG BILEVEL POS AIRWAY PRESSURE 16/5; BG CARBOXYHEMOGLOBIN 0.3 % (0.5-1.5); BG FRACTION INSPIRED OXYGEN 60; BG HCO3 ACT 26.5 mmol/L (22.0-26.0); BG METHEMOGLOBIN 0.3 % (0.0-1.5); BG OXYHEMOGLOBIN 98.4 % (94.0-97.0); BG PCO2 35.4 mmHg (35.0-45.0); BG PH 7.492 (7.350-7.450); BG PO2 224.8 mmHg (75.0-100.0); BG SAMPLE SITE RIGHT RADIAL; BG TOTAL HEMOGLOBIN 8.2 g/dL (12.0-18.0); BG VENT MODE MASK - BIPAP; BG VENT RATE 16 set
[2019-09-23] MEDS ORDERED: LORAZEPAM 0.5MG TABLET PO PRN (09:45)
[2019-09-23] MEDS ORDERED: ONDANSETRON HCL 4MG/2ML INJ IV PRN (09:45)
[2019-09-23] MEDS ORDERED: PIPERACILLIN/TAZOBACTAM 2.25 G in DEXTROSE 5% WATER 50 ML IV SCH ×2 (09:45→10:15)
[2019-09-23] MEDS ORDERED: HYDROCODONE/ACETAMINOPHEN 5/325MG TABLET PO PRN (09:45)
[2019-09-23] MEDS ORDERED: ACETAMINOPHEN 650MG SUPP PR PRN (09:45)
[2019-09-23] MEDS ORDERED: NA PHOS,M-B/NA PHOS,DI-BA ENEMA 118ML PR PRN (09:45)
[2019-09-23] MEDS ORDERED: DOCUSATE SODIUM 100MG CAPSULE PO PRN (09:45)
[2019-09-23] MEDS ORDERED: DIPHENHYDRAMINE 50MG/ML VIAL IV PRN (09:45)
[2019-09-23] MEDS ORDERED: GUAIFENESIN 200MG/10ML SUGAR FREE UDC PO PRN (09:45)
[2019-09-23] MEDS ORDERED: IPRATROPIUM/ALBUTEROL 0.5-3(2.5)MG/3ML NEB NEB PRN (09:45)
[2019-09-23] MEDS ORDERED: MAGNESIUM/ALUMINUM HYDROXIDE/SIMETHICONE 30ML UDC PO PRN (09:45)
[2019-09-23] MEDS ORDERED: ACETAMINOPHEN 325MG TABLET PO PRN (09:45)
[2019-09-23] MEDS ORDERED: DEXT 5%/0.45% NACL 1000ML 1,000 ML IV SCH (10:00)
[2019-09-23] MEDS: FAMOTIDINE 20MG/2ML VIAL IV SCH (10:13)
[2019-09-23] MEDS: METHYLPREDNISOLONE SOD SUCC 40 MG/ML VIAL IV SCH ×2 (10:14→23:07)
[2019-09-23] MEDS ORDERED: POTASSIUM CHLORIDE INJ 40 MEQ in DEXT 5% WATER 250 ML IV ONE (10:15)
[2019-09-23 10:27] LABS: BASOPHILS % 0.9 % (0.0-2.0); HEMOGLOBIN. 7.6 g/dL (14.0-18.0); LYMPHOCYTES % 8.1 % (20.0-50.0); MEAN CORPUSCULAR HEMOGLOBIN 31.5 pg (28.0-32.0); MEAN CORPUSCULAR VOLUME 91.6 fL (80.0-94.0); MEAN PLATELET VOLUME 6.9 fl (7.4-10.4); MONOCYTES % 7.7 % (2.0-8.0); NEUTROPHILS % 76.3 % (40.0-76.0); PLATELET 225 x1000/uL (130-400); RED CELL DISTRIBUTION WIDTH 15.4 % (11.6-14.6)
[2019-09-23 10:34] LABS: INR 1.2; PROTHROMBIN TIME 13.4 sec (9.6-11.0)
[2019-09-23 14:23] LABS: BG BASE EXCESS 1.1 mmol/L (-2.0-2.0); BG CARBOXYHEMOGLOBIN 0.3 % (0.5-1.5); BG FRACTION INSPIRED OXYGEN 32; BG HCO3 ACT 25.3 mmol/L (22.0-26.0); BG METHEMOGLOBIN 0.1 % (0.0-1.5); BG OXYHEMOGLOBIN 97.6 % (94.0-97.0); BG PCO2 38.5 mmHg (35.0-45.0); BG PH 7.436 (7.350-7.450); BG SAMPLE SITE RIGHT RADIAL; BG TOTAL HEMOGLOBIN 8.9 g/dL (12.0-18.0); BG VENT MODE NASAL CANNULA
[2019-09-23 14:44] VITALS: BP 151/79
[2019-09-23] MEDS ORDERED: AMLO5TAB88 MT (15:53)
[2019-09-23] MEDS ORDERED: BETH5TAB10 MT (15:54)
[2019-09-23] MEDS ORDERED: ESCI5SOL2 MT (15:54)
[2019-09-23] MEDS ORDERED: FAMO20TA8 MT (15:55)
[2019-09-23] MEDS ORDERED: LEVO750T46 MT (15:56)
[2019-09-23] MEDS ORDERED: FINA1TAB18 MT (15:56)
[2019-09-23] MEDS ORDERED: ALBU05 NEB (15:59)
[2019-09-23] MEDS: PIPERACILLIN/TAZOBACTAM 3.375 G in DEXT 5% WATER 100 ML IV SCH ×2 (16:47→23:57)
[2019-09-23] MEDS ORDERED: POTASSIUM CHLORIDE INJ 40 MEQ in DEXT 5% WATER 250 ML IV NR (17:00)
[2019-09-23] MEDS: VANCOMYCIN 1 G PREMIX 200 ML IV SCH (17:22)
[2019-09-23 19:29] LABS: HEMATOCRIT 22.6 % (42.0-52.0); HEMOGLOBIN 7.8 g/dL (14.0-18.0)
[2019-09-23 19:45] LABS: CREATINE KINASE 194 IU/L (39-308)
[2019-09-23 19:46] LABS: CREATINE KINASE MB FRACTION 1.3 ng/mL (0.5-3.6)
[2019-09-23 20:00] VITALS: BP 128/90
[2019-09-23] MEDS: IPRATROPIUM/ALBUTEROL 0.5-3(2.5)MG/3ML NEB NEB SCH (20:56)
[2019-09-24] VITALS (7 sets, daily range): BP systolic 114–169; BP diastolic 56–88
[2019-09-24 00:23] LABS: CREATINE KINASE 199 IU/L (39-308)
[2019-09-24 00:24] LABS: CREATINE KINASE MB FRACTION 1.5 ng/mL (0.5-3.6)
[2019-09-24] MEDS: IPRATROPIUM/ALBUTEROL 0.5-3(2.5)MG/3ML NEB NEB SCH ×4 (01:59→21:05)
[2019-09-24] MEDS: PIPERACILLIN/TAZOBACTAM 3.375 G in DEXT 5% WATER 100 ML IV SCH ×3 (07:08→18:33)
[2019-09-24 07:27] LABS: HEMATOCRIT. 21.9 % (42.0-52.0); HEMOGLOBIN. 7.4 g/dL (14.0-18.0); MEAN CORPUSCULAR HEMOGLOBIN 31.5 pg (28.0-32.0); MEAN CORPUSCULAR VOLUME 92.9 fL (80.0-94.0); MEAN PLATELET VOLUME 7.9 fl (7.4-10.4); PLATELET 229 x1000/uL (130-400); RED BLOOD CELL COUNT 2.36 mill/uL (4.7-6.1); RED CELL DISTRIBUTION WIDTH 15.8 % (11.6-14.6)
[2019-09-24 07:42] LABS: CHLORIDE 111 mEq/L (98-107)
[2019-09-24 07:50] LABS: LDL CHOLESTEROL 78 mg/dL (5-100)
[2019-09-24 07:51] LABS: HDL CHOLESTEROL 57 mg/dL (40-59); TOTAL IRON BINDING CAPACITY 201 ug/dL (250-450)
[2019-09-24 07:53] LABS: T4 FREE 0.95 ng/dL (0.76-1.46)
[2019-09-24 08:50] LABS: PLATELET ESTIMATE NORMAL
[2019-09-24] MEDS: METHYLPREDNISOLONE SOD SUCC 40 MG/ML VIAL IV SCH ×2 (09:58→21:33)
[2019-09-24] MEDS: FAMOTIDINE 20MG/2ML VIAL IV SCH (09:59)
[2019-09-24 10:37] LABS: *AMPHETAMINES SCREEN URINE NEGATIVE (NEGATIVE); *BARBITURATES SCREEN URINE NEGATIVE (NEGATIVE); *BENZODIAZEPINES SCREEN URINE NEGATIVE (NEGATIVE); *COCAINE SCREEN URINE NEGATIVE (NEGATIVE); CANNABINOID URINE SCREEN NEGATIVE (NEGATIVE); METHADONE URINE SCREEN NEGATIVE (NEGATIVE); OPIATES URINE SCREEN NEGATIVE (NEGATIVE); PHENCYCLIDINE URINE SCREEN NEGATIVE (NEGATIVE)
[2019-09-24] MEDS ORDERED: DEXTROSE 50% WATER 50ML SYRINGE IV PRN (11:15)
[2019-09-24 11:59] LABS: BG BASE EXCESS 0.5 mmol/L (-2.0-2.0); BG CARBOXYHEMOGLOBIN 0.3 % (0.5-1.5); BG DEOXYHEMOGLOBIN 5.5 % (0.0-5.0); BG FRACTION INSPIRED OXYGEN 21; BG HCO3 ACT 24.9 mmol/L (22.0-26.0); BG METHEMOGLOBIN 0.2 % (0.0-1.5); BG OXYGEN SATURATION 94.5 % (92.0-98.5); BG PCO2 39.2 mmHg (35.0-45.0); BG PH 7.421 (7.350-7.450); BG PO2 67.1 mmHg (75.0-100.0); BG SAMPLE SITE RIGHT RADIAL; BG TOTAL HEMOGLOBIN 9.6 g/dL (12.0-18.0); BG VENT MODE ROOM AIR
[2019-09-24] MEDS: FERROUS SULFATE 325MG TABLET PO SCH ×2 (12:26→16:34)
[2019-09-24] MEDS: BLOOD SUGAR DIAGNOSTIC STRIP TEST SCH ×3 (12:38→20:29)
[2019-09-24] MEDS: INSULIN LISPRO 100 UNITS/ML SUBCUT SCH ×3 (12:50→20:29)
[2019-09-24] MEDS ORDERED: MAGNESIUM 1 G PREMIX 100 ML IV NR (13:00)
[2019-09-24] MEDS: VANCOMYCIN 1 G PREMIX 200 ML IV SCH (16:34)
[2019-09-24 16:52] LABS: HEMATOCRIT 24.4 % (42.0-52.0); HEMOGLOBIN 8.2 g/dL (14.0-18.0)
[2019-09-24] MEDS: CLONIDINE 0.1MG TABLET PO PRN (21:33)
[2019-09-25] VITALS (10 sets, daily range): BP systolic 143–169; BP diastolic 69–87
[2019-09-25] MEDS: PIPERACILLIN/TAZOBACTAM 3.375 G in DEXT 5% WATER 100 ML IV SCH ×4 (01:27→17:58)
[2019-09-25] MEDS: IPRATROPIUM/ALBUTEROL 0.5-3(2.5)MG/3ML NEB NEB SCH ×4 (02:03→20:00)
[2019-09-25 06:58] LABS: BASOPHILS % 0.1 % (0.0-2.0); EOSINOPHILS % 0.1 % (0.0-5.0); HEMATOCRIT. 21.1 % (42.0-52.0); HEMOGLOBIN. 7.2 g/dL (14.0-18.0); LYMPHOCYTES % 7.6 % (20.0-50.0); MEAN CORPUSCULAR HEMOGLOBIN 31.4 pg (28.0-32.0); MEAN CORPUSCULAR VOLUME 91.4 fL (80.0-94.0); MEAN PLATELET VOLUME 7.7 fl (7.4-10.4); MONOCYTES % 4.4 % (2.0-8.0); NEUTROPHILS % 87.8 % (40.0-76.0); PLATELET 236 x1000/uL (130-400); RED BLOOD CELL COUNT 2.31 mill/uL (4.7-6.1); RED CELL DISTRIBUTION WIDTH 15.6 % (11.6-14.6)
[2019-09-25] MEDS: BLOOD SUGAR DIAGNOSTIC STRIP TEST SCH ×4 (06:59→21:58)
[2019-09-25] MEDS: INSULIN LISPRO 100 UNITS/ML SUBCUT SCH ×4 (07:24→21:00)
[2019-09-25] MEDS: METHYLPREDNISOLONE SOD SUCC 40 MG/ML VIAL IV SCH ×2 (09:13→21:58)
[2019-09-25] MEDS: FAMOTIDINE 20MG/2ML VIAL IV SCH (09:13)
[2019-09-25] MEDS: FERROUS SULFATE 325MG TABLET PO SCH ×3 (09:14→17:58)
[2019-09-25] MEDS: CLONIDINE 0.1MG TABLET PO PRN (12:41)
[2019-09-25] MEDS ORDERED: POTASSIUM CHLORIDE INJ 40 MEQ in DEXT 5% WATER 500 ML IV NR ×2 (12:45→18:00)
[2019-09-25] MEDS ORDERED: SODIUM CHLORIDE 10% FOR INH 15ML VIAL NEB INH NR (13:00)
[2019-09-25 20:34] LABS: HEMATOCRIT 29.4 % (42.0-52.0); HEMOGLOBIN 10.1 g/dL (14.0-18.0)
[2019-09-25] MEDS ORDERED: VANCOMYCIN 750 MG PREMIX 150 ML IV SCH (22:00)
[2019-09-25 23:16] LABS: PROTHROMBIN TIME 13.1 sec (9.6-11.0)
[2019-09-25 23:17] LABS: INR 1.2
[2019-09-26] VITALS: BP 163/79
[2019-09-26] MEDS: CLONIDINE 0.1MG TABLET PO PRN ×2 (01:13→19:52)
[2019-09-26] MEDS: PIPERACILLIN/TAZOBACTAM 3.375 G in DEXT 5% WATER 100 ML IV SCH ×4 (01:13→18:00)
[2019-09-26] MEDS: IPRATROPIUM/ALBUTEROL 0.5-3(2.5)MG/3ML NEB NEB SCH ×3 (02:16→14:45)
[2019-09-26 04:00] VITALS: BP 175/72
[2019-09-26] MEDS: BLOOD SUGAR DIAGNOSTIC STRIP TEST SCH ×3 (06:37→17:35)
[2019-09-26 07:56] LABS: HEMATOCRIT 25.2 % (42.0-52.0); MEAN CORPUSCULAR HEMOGLOBIN 32.5 pg (28.0-32.0); MEAN CORPUSCULAR VOLUME 91.3 fL (80.0-94.0); PLATELET 228 x1000/uL (130-400); RED BLOOD CELL COUNT 2.76 mill/uL (4.7-6.1); RED CELL DISTRIBUTION WIDTH 15.5 % (11.6-14.6)
[2019-09-26 08:00] VITALS: BP 149/99
[2019-09-26] MEDS: FAMOTIDINE 20MG/2ML VIAL IV SCH (09:39)
[2019-09-26] MEDS: METHYLPREDNISOLONE SOD SUCC 40 MG/ML VIAL IV SCH (09:39)
[2019-09-26] MEDS: FERROUS SULFATE 325MG TABLET PO SCH ×3 (09:39→17:35)
[2019-09-26] MEDS: INSULIN LISPRO 100 UNITS/ML SUBCUT SCH ×3 (09:49→17:36)
[2019-09-26] MEDS ORDERED: HYDRALAZINE HCL 50MG TABLET PO SCH ×2 (10:45→16:00)
[2019-09-26] MEDS ORDERED: AMLODIPINE 5MG TABLET PO SCH (10:45)
[2019-09-26 11:25] LABS: BG BASE EXCESS 0.9 mmol/L (-2.0-2.0); BG CARBOXYHEMOGLOBIN 0.3 % (0.5-1.5); BG DEOXYHEMOGLOBIN 5.3 % (0.0-5.0); BG FRACTION INSPIRED OXYGEN 21; BG HCO3 ACT 24.3 mmol/L (22.0-26.0); BG METHEMOGLOBIN 0.2 % (0.0-1.5); BG OXYGEN SATURATION 94.7 % (92.0-98.5); BG OXYHEMOGLOBIN 94.2 % (94.0-97.0); BG PCO2 34.3 mmHg (35.0-45.0); BG PH 7.469 (7.350-7.450); BG PO2 67.5 mmHg (75.0-100.0); BG SAMPLE SITE RIGHT RADIAL; BG TOTAL HEMOGLOBIN 9.6 g/dL (12.0-18.0); BG VENT MODE ROOM AIR
[2019-09-26 12:00] VITALS: BP 154/79
[2019-09-26] MEDS ORDERED: POTASSIUM CHLORIDE INJ 40 MEQ in DEXT 5% WATER 250 ML IV SCH (13:00)
[2019-09-26] MEDS ORDERED: AMOX250S70 GT (15:26)
[2019-09-26] MEDS ORDERED: P20 PO (15:26)
[2019-09-26] MEDS ORDERED: IPRA3AMP9 NEB (15:26)
[2019-09-26 16:00] VITALS: BP 139/74
== END 2019-09-26 20:45 | disposition home or self-care (01) | DRG 177 ==
LOC: ER 17:49 → 6WST 22:47 → EDBEDREQTM 22:52 → EDBEDREQ 22:52 → EDBEDREQSVC 22:52 → ENRESERV 09-23 13:27 → SUPCPDRO 09-23 13:52
PROVIDERS: ADMIT Internal Medicine; ATTEND Internal Medicine
PROC: 5A09357 Assistance with Respiratory Ventilation, Less than 24 Consecutive Hours, Continuous Positive Airway Pressure (ICD-10-PCS; principal; 2019-09-22)
PROC: 30233N1 Transfusion of Nonautologous Red Blood Cells into Peripheral Vein, Percutaneous Approach (ICD-10-PCS; 2019-09-25)
DX: J69.0 Pneumonitis due to inhalation of food and vomit (principal); J96.00 Acute respiratory failure, unspecified whether with hypoxia or hypercapnia; S22.080A Wedge compression fracture of T11-T12 vertebra, initial encounter for closed fracture; J44.1 Chronic obstructive pulmonary disease with (acute) exacerbation; J90 Pleural effusion, not elsewhere classified; R78.81 Bacteremia; D64.9 Anemia, unspecified; M48.061 Spinal stenosis, lumbar region without neurogenic claudication; N18.9 Chronic kidney disease, unspecified; B95.7 Other staphylococcus as the cause of diseases classified elsewhere; E61.1 Iron deficiency; N40.0 Benign prostatic hyperplasia without lower urinary tract symptoms; X58.XXXA Exposure to other specified factors, initial encounter; I12.9 Hypertensive chronic kidney disease with stage 1 through stage 4 chronic kidney disease, or unspecified chronic kidney disease; E87.6 Hypokalemia; I89.0 Lymphedema, not elsewhere classified; I25.2 Old myocardial infarction; Z86.73 Personal history of transient ischemic attack (TIA), and cerebral infarction without residual deficits; Z93.1 Gastrostomy status; Z79.899 Other long term (current) drug therapy; Y93.89 Activity, other specified; Y92.89 Other specified places as the place of occurrence of the external cause; Y99.8 Other external cause status
CPT/HCPCS: 36415; 36600; 71045; 74018; 74176; 76604; 80048; 80053; 80061; 80202; 80305; 81003; 82270; 82375; 82550; 82553; 82805; 82962; 83036; 83540; 83550; 83735; 83880; 84153; 84439; 84443; 84484; 85014; 85018; 85025; 85027; 85044; 85049; 85384; 86850; 86900; 86920; 87077; 87186; 93005; 93306; 93970; 94640; 94660; 97162; 99291; J1815; J2543; J2920; J3370; J3475; J3480; J3490; J7060; J7131; P9016; G0103

== ENCOUNTER 2019-10-28 12:21 | Inpatient (IN) | payer BC ==
[~2019-10-28] VITALS: Ht 175.3 cm; Wt 73.9 kg
[~2019-10-28 12:21] MED LIST changes: +ALBU05 NEB; +AMLO5TAB88 MT; +AMOX250S70 GT; +BETH5TAB10 MT; -DOCU-138 PO; +ESCI5SOL2 MT; +FAMO20TA8 MT; +FINA1TAB18 MT; +IPRA3AMP9 NEB; -LISI-604 PO; -MOME13HF2 INH; +P20 PO; -PROCARDIA XL PO; -SIMV-46 MT
[2019-10-28 13:13] LABS: HEMATOCRIT. 28.6 % (42.0-52.0); HEMOGLOBIN. 9.8 g/dL (14.0-18.0); MEAN CORPUSCULAR VOLUME 93.7 fL (80.0-94.0); MEAN PLATELET VOLUME 8.3 fl (7.4-10.4); PLATELET 189 x1000/uL (130-400); RED BLOOD CELL COUNT 3.06 mill/uL (4.7-6.1); RED CELL DISTRIBUTION WIDTH 17.1 % (11.6-14.6)
[2019-10-28 13:19] LABS: CLARITY URINE CLOUDY (CLEAR); COLOR URINE YELLOW (YELLOW); KETONES URINE TRACE (NEGATIVE); LEUKOCYTE ESTERASE URINE 2+ (NEGATIVE); NITRITE URINE NEGATIVE (NEGATIVE); OCCULT BLOOD URINE TRACE (NEGATIVE); PH URINE 6.5 (4.5-8.0); PROTEIN URINE 1+ (NEGATIVE); SPECIFIC GRAVITY URINE 1.014 (1.005-1.030); UROBILINOGEN URINE 0.2 E.U./dL (0.2-1.0)
[2019-10-28 13:20] LABS: CHLORIDE 118 mEq/L (98-107)
[2019-10-28 13:22] LABS: INR 1.2; PARTIAL THROMBOPLASTIN TIME 30.5 sec (23.4-31.0)
[2019-10-28 13:30] LABS: BG BASE EXCESS -0.9 mmol/L (-2.0-2.0); BG CARBOXYHEMOGLOBIN 0.3 % (0.5-1.5); BG DEOXYHEMOGLOBIN 2.7 % (0.0-5.0); BG HCO3 ACT 23.5 mmol/L (22.0-26.0); BG METHEMOGLOBIN 0.3 % (0.0-1.5); BG OXYGEN SATURATION 97.3 % (92.0-98.5); BG OXYHEMOGLOBIN 96.7 % (94.0-97.0); BG PCO2 37.8 mmHg (35.0-45.0); BG PH 7.411 (7.350-7.450); BG PO2 103.7 mmHg (75.0-100.0); BG SAMPLE SITE RIGHT RADIAL; BG TOTAL HEMOGLOBIN 10.4 g/dL (12.0-18.0); BG VENT MODE MASK - NRB
[2019-10-28 13:44] LABS: PLATELET ESTIMATE NORMAL
[2019-10-28] MEDS ORDERED: ASPIRIN 325MG EC TABLET PO ONE (14:30)
[2019-10-28] MEDS ORDERED: ASPIRIN 300MG SUPP PR ONE (15:00)
[2019-10-28] MEDS ORDERED: ONDANSETRON HCL 4MG/2ML INJ IV PRN (17:15)
[2019-10-28] MEDS ORDERED: DIPHENHYDRAMINE 50MG/ML VIAL IV PRN (17:15)
[2019-10-28] MEDS ORDERED: CLONIDINE 0.1MG TABLET PO PRN (17:15)
[2019-10-28] MEDS ORDERED: IPRATROPIUM/ALBUTEROL 0.5-3(2.5)MG/3ML NEB NEB PRN (17:15)
[2019-10-28] MEDS ORDERED: HYDROCODONE/ACETAMINOPHEN 5/325MG TABLET PO PRN (17:15)
[2019-10-28] MEDS ORDERED: DOCUSATE SODIUM 100MG CAPSULE PO PRN (17:15)
[2019-10-28] MEDS ORDERED: ACETAMINOPHEN 650MG SUPP PR PRN (17:15)
[2019-10-28] MEDS ORDERED: PIPERACILLIN/TAZ 3.375G PREMIX 50 ML IV SCH (17:15)
[2019-10-28] MEDS ORDERED: GUAIFENESIN 200MG/10ML SUGAR FREE UDC PO PRN (17:15)
[2019-10-28] MEDS ORDERED: MAGNESIUM/ALUMINUM HYDROXIDE/SIMETHICONE 30ML UDC PO PRN (17:15)
[2019-10-28] MEDS ORDERED: NA PHOS,M-B/NA PHOS,DI-BA ENEMA 118ML PR PRN (17:15)
[2019-10-28 17:50] VITALS: BP 155/75
[2019-10-28 20:00] VITALS: BP 152/74
[2019-10-28] MEDS ORDERED: POTASSIUM CHLORIDE INJ 40 MEQ in DEXT 5% WATER 250 ML IV NR (20:30)
[2019-10-28] MEDS ORDERED: PNEUMOCOCCAL 23-VAL P-SAC VAC 0.5 ML IM ONE (20:45)
[2019-10-28] MEDS ORDERED: INFLUENZA VIRUS VACCINE(AFLURIA) 0.5ML SYR IM ONE (21:00)
[2019-10-28] MEDS ORDERED: VANCOMYCIN 2,000 MG in DEXT 5% WATER 500 ML IV NR (21:00)
[2019-10-28] MEDS: PIPERACILLIN/TAZOBACTAM 3.375 G in DEXT 5% WATER 100 ML IV SCH (21:40)
[2019-10-29] VITALS (9 sets, daily range): BP systolic 111–178; BP diastolic 60–98
[2019-10-29] MEDS: PIPERACILLIN/TAZOBACTAM 3.375 G in DEXT 5% WATER 100 ML IV SCH ×4 (01:45→20:07)
[2019-10-29 06:38] LABS: HEMATOCRIT. 32.6 % (42.0-52.0); HEMOGLOBIN. 10.9 g/dL (14.0-18.0); MEAN CORPUSCULAR VOLUME 95.6 fL (80.0-94.0); MEAN PLATELET VOLUME 8.6 fl (7.4-10.4); PLATELET 194 x1000/uL (130-400); RED BLOOD CELL COUNT 3.41 mill/uL (4.7-6.1); RED CELL DISTRIBUTION WIDTH 17.5 % (11.6-14.6)
[2019-10-29 06:50] LABS: CHLORIDE 116 mEq/L (98-107)
[2019-10-29 06:59] LABS: CREATINE KINASE MB FRACTION 2.9 ng/mL (0.5-3.6)
[2019-10-29 07:01] LABS: LDL CHOLESTEROL 96 mg/dL (5-100)
[2019-10-29 07:02] LABS: CREATINE KINASE 362 IU/L (39-308)
[2019-10-29 07:03] LABS: HDL CHOLESTEROL 67 mg/dL (40-59); T4 FREE 0.98 ng/dL (0.76-1.46)
[2019-10-29 08:02] LABS: *AMPHETAMINES SCREEN URINE NEGATIVE (NEGATIVE); *BARBITURATES SCREEN URINE NEGATIVE (NEGATIVE); *BENZODIAZEPINES SCREEN URINE NEGATIVE (NEGATIVE); *COCAINE SCREEN URINE NEGATIVE (NEGATIVE); CANNABINOID URINE SCREEN NEGATIVE (NEGATIVE); METHADONE URINE SCREEN NEGATIVE (NEGATIVE); OPIATES URINE SCREEN NEGATIVE (NEGATIVE); PHENCYCLIDINE URINE SCREEN NEGATIVE (NEGATIVE)
[2019-10-29] MEDS: ASPIRIN 81MG EC TABLET PO SCH (08:21)
[2019-10-29] MEDS: POTASSIUM CHLORIDE 8 MEQ TABLET.SA PO SCH (08:21)
[2019-10-29] MEDS: CLOPIDOGREL 75MG TABLET PO SCH (08:21)
[2019-10-29] MEDS: FUROSEMIDE 40MG TABLET PO SCH ×2 (08:22→17:12)
[2019-10-29] MEDS: FAMOTIDINE 20MG TABLET PO SCH (08:22)
[2019-10-29] MEDS: CITALOPRAM HYDROBROMIDE 10MG TABLET PO SCH (08:22)
[2019-10-29] MEDS: TAMSULOSIN HCL 0.4MG SR CAPSULE PO SCH (08:22)
[2019-10-29] MEDS: FINASTERIDE 5MG TABLET PO SCH (08:28)
[2019-10-29] MEDS ORDERED: AMLODIPINE 5MG TABLET PO SCH (09:00)
[2019-10-29] MEDS: DILTIAZEM HCL 30MG TABLET PO SCH ×2 (13:21→17:12)
[2019-10-29 16:26] LABS: BG BASE EXCESS 1.2 mmol/L (-2.0-2.0); BG CARBOXYHEMOGLOBIN 0.2 % (0.5-1.5); BG DEOXYHEMOGLOBIN 0.7 % (0.0-5.0); BG FRACTION INSPIRED OXYGEN 100; BG HCO3 ACT 26.3 mmol/L (22.0-26.0); BG METHEMOGLOBIN 0.3 % (0.0-1.5); BG OXYGEN SATURATION 99.3 % (92.0-98.5); BG OXYHEMOGLOBIN 98.8 % (94.0-97.0); BG PCO2 44.3 mmHg (35.0-45.0); BG PH 7.392 (7.350-7.450); BG PO2 336.5 mmHg (75.0-100.0); BG SAMPLE SITE RIGHT RADIAL; BG TOTAL HEMOGLOBIN 9.5 g/dL (12.0-18.0); BG VENT MODE MASK - NRB
[2019-10-29 19:36] LABS: PLATELET ESTIMATE NORMAL
[2019-10-29] MEDS: LORAZEPAM 0.5MG TABLET PO PRN (19:52)
[2019-10-29] MEDS: ACETAMINOPHEN 325MG TABLET PO PRN (20:03)
[2019-10-29] MEDS ORDERED: VANCOMYCIN 1,000 MG in DEXT 5% WATER 250 ML IV SCH (21:00)
[2019-10-29] MEDS: IPRATROPIUM/ALBUTEROL 0.5-3(2.5)MG/3ML NEB HHN SCH (21:12)
[2019-10-29 21:55] LABS: BG BASE EXCESS -1.3 mmol/L (-2.0-2.0); BG BILEVEL POS AIRWAY PRESSURE 15/5; BG CARBOXYHEMOGLOBIN 0.3 % (0.5-1.5); BG FRACTION INSPIRED OXYGEN 50; BG HCO3 ACT 23.4 mmol/L (22.0-26.0); BG METHEMOGLOBIN 0.4 % (0.0-1.5); BG OXYHEMOGLOBIN 98.3 % (94.0-97.0); BG PCO2 39.4 mmHg (35.0-45.0); BG PH 7.392 (7.350-7.450); BG PO2 189.6 mmHg (75.0-100.0); BG SAMPLE SITE LEFT RADIAL; BG TOTAL HEMOGLOBIN 9.7 g/dL (12.0-18.0); BG VENT MODE MASK - BIPAP
[2019-10-30] VITALS (31 sets, daily range): BP systolic 69–189; BP diastolic 40–120
[2019-10-30] MEDS: DILTIAZEM HCL 30MG TABLET PO SCH ×4 (00:41→17:14)
[2019-10-30] MEDS: PIPERACILLIN/TAZOBACTAM 3.375 G in DEXT 5% WATER 100 ML IV SCH ×4 (02:42→14:38)
[2019-10-30] MEDS: IPRATROPIUM/ALBUTEROL 0.5-3(2.5)MG/3ML NEB HHN SCH ×4 (03:57→20:11)
[2019-10-30] MEDS: LORAZEPAM 0.5MG TABLET PO PRN (04:43)
[2019-10-30 05:50] LABS: BG BASE EXCESS -2.9 mmol/L (-2.0-2.0); BG BILEVEL POS AIRWAY PRESSURE 15/5; BG CARBOXYHEMOGLOBIN 0.1 % (0.5-1.5); BG FRACTION INSPIRED OXYGEN 100; BG HCO3 ACT 23.6 mmol/L (22.0-26.0); BG METHEMOGLOBIN 0.3 % (0.0-1.5); BG OXYHEMOGLOBIN 87.6 % (94.0-97.0); BG PCO2 47.8 mmHg (35.0-45.0); BG PH 7.311 (7.350-7.450); BG PO2 59.7 mmHg (75.0-100.0); BG SAMPLE SITE LEFT RADIAL; BG VENT MODE MASK - BIPAP; BG VENT RATE 16 set
[2019-10-30 06:32] LABS: BASOPHILS % 0.3 % (0.0-2.0); HEMATOCRIT. 31.6 % (42.0-52.0); HEMOGLOBIN. 10.7 g/dL (14.0-18.0); LYMPHOCYTES % 9.4 % (20.0-50.0); MEAN CORPUSCULAR HEMOGLOBIN 31.9 pg (28.0-32.0); MEAN CORPUSCULAR VOLUME 94.7 fL (80.0-94.0); MEAN PLATELET VOLUME 8.5 fl (7.4-10.4); NEUTROPHILS % 78.3 % (40.0-76.0); PLATELET 175 x1000/uL (130-400); RED BLOOD CELL COUNT 3.34 mill/uL (4.7-6.1); RED CELL DISTRIBUTION WIDTH 17.5 % (11.6-14.6)
[2019-10-30 06:55] LABS: BG BASE EXCESS -7.9 mmol/L (-2.0-2.0); BG CARBOXYHEMOGLOBIN 0.3 % (0.5-1.5); BG DEOXYHEMOGLOBIN 0.7 % (0.0-5.0); BG FRACTION INSPIRED OXYGEN 100; BG HCO3 ACT 16.6 mmol/L (22.0-26.0); BG METHEMOGLOBIN 0.3 % (0.0-1.5); BG OXYGEN SATURATION 99.3 % (92.0-98.5); BG OXYHEMOGLOBIN 98.7 % (94.0-97.0); BG PCO2 30.7 mmHg (35.0-45.0); BG PH 7.352 (7.350-7.450); BG PO2 230.9 mmHg (75.0-100.0); BG SAMPLE SITE RIGHT BRACHIAL; BG TIDAL VOLUME(mL) 400 mL; BG TOTAL HEMOGLOBIN 10.4 g/dL (12.0-18.0); BG VENT MODE VENT - A/C; BG VENT RATE 12 set
[2019-10-30] MEDS ORDERED: ETOMIDATE 2MG/ML 10ML VIAL IV ONE (06:55)
[2019-10-30] MEDS ORDERED: SUCCINYLCHOLINE CHLORIDE 200MG/10ML IV ONE (06:55)
[2019-10-30] MEDS ORDERED: MORPHINE SULFATE 2 MG/ML CPJ (NOT FOR IM USE) IV PRN (08:15)
[2019-10-30] MEDS: FAMOTIDINE 20MG TABLET PO SCH (08:49)
[2019-10-30] MEDS: POTASSIUM CHLORIDE 8 MEQ TABLET.SA PO SCH (08:49)
[2019-10-30] MEDS: LORAZEPAM 2MG/ML CPJ IV PRN (08:49)
[2019-10-30] MEDS: ASPIRIN 81MG EC TABLET PO SCH (08:49)
[2019-10-30] MEDS: CLOPIDOGREL 75MG TABLET PO SCH (08:49)
[2019-10-30] MEDS: ASCORBIC ACID 500 MG TABLET PO SCH (08:50)
[2019-10-30] MEDS: ZINC SULFATE 220 MG ( 50 ) CAPSULE PO SCH (08:50)
[2019-10-30] MEDS: CITALOPRAM HYDROBROMIDE 10MG TABLET PO SCH (08:50)
[2019-10-30] MEDS: TAMSULOSIN HCL 0.4MG SR CAPSULE PO SCH (08:51)
[2019-10-30] MEDS: FINASTERIDE 5MG TABLET PO SCH (08:52)
[2019-10-30] MEDS: FUROSEMIDE 40MG TABLET PO SCH ×2 (08:55→18:33)
[2019-10-30] MEDS ORDERED: NOREPINEPHRINE 4 MG in DEXTROSE 5% WATER 250 ML IV PRN (09:30)
[2019-10-30] MEDS ORDERED: NOREPINEPHRINE 4MG/250ML PMX 250 ML IV ONE (09:30)
[2019-10-30 11:59] LABS: BG BASE EXCESS -1.3 mmol/L (-2.0-2.0); BG CARBOXYHEMOGLOBIN 0.3 % (0.5-1.5); BG DEOXYHEMOGLOBIN 3.6 % (0.0-5.0); BG HCO3 ACT 21.9 mmol/L (22.0-26.0); BG METHEMOGLOBIN 0.3 % (0.0-1.5); BG OXYGEN SATURATION 96.4 % (92.0-98.5); BG OXYHEMOGLOBIN 95.8 % (94.0-97.0); BG PH 7.466 (7.350-7.450); BG PO2 85.2 mmHg (75.0-100.0); BG SAMPLE SITE RIGHT RADIAL; BG TIDAL VOLUME(mL) 400 mL; BG TOTAL HEMOGLOBIN 10.3 g/dL (12.0-18.0); BG VENT MODE VENT - A/C; BG VENT RATE 12 set
[2019-10-30] MEDS: MIDODRINE HCL 5MG TABLET PO SCH ×2 (14:04→18:34)
[2019-10-30] MEDS ORDERED: PIPERACILLIN/TAZOBACTAM 3.375 G in DEXT 5% WATER 100 ML IV SCH (18:00)
[2019-10-30] MEDS: PIPERACILLIN/TAZOBACTAM 2.25 G in DEXTROSE 5% WATER 50 ML IV SCH (18:35)
[2019-10-31] VITALS (35 sets, daily range): BP systolic 100–187; BP diastolic 56–95
[2019-10-31] MEDS: PIPERACILLIN/TAZOBACTAM 2.25 G in DEXTROSE 5% WATER 50 ML IV SCH ×4 (02:08→17:54)
[2019-10-31] MEDS: IPRATROPIUM/ALBUTEROL 0.5-3(2.5)MG/3ML NEB HHN SCH ×4 (02:24→21:02)
[2019-10-31] MEDS: LORAZEPAM 2MG/ML CPJ IV PRN (05:58)
[2019-10-31] MEDS: ACETAMINOPHEN 325MG TABLET PO PRN (05:59)
[2019-10-31] MEDS: DILTIAZEM HCL 30MG TABLET PO SCH ×4 (06:13→17:54)
[2019-10-31 06:21] LABS: HEMATOCRIT. 25.3 % (42.0-52.0); HEMOGLOBIN. 8.6 g/dL (14.0-18.0); MEAN CORPUSCULAR VOLUME 94.1 fL (80.0-94.0); MEAN PLATELET VOLUME 8.7 fl (7.4-10.4); PLATELET 145 x1000/uL (130-400); RED BLOOD CELL COUNT 2.68 mill/uL (4.7-6.1); RED CELL DISTRIBUTION WIDTH 16.9 % (11.6-14.6)
[2019-10-31] MEDS: TAMSULOSIN HCL 0.4MG SR CAPSULE PO SCH (08:15)
[2019-10-31] MEDS: FAMOTIDINE 20MG TABLET PO SCH (08:15)
[2019-10-31] MEDS: ASPIRIN 81MG EC TABLET PO SCH (08:15)
[2019-10-31] MEDS: FINASTERIDE 5MG TABLET PO SCH (08:15)
[2019-10-31] MEDS: ZINC SULFATE 220 MG ( 50 ) CAPSULE PO SCH (08:15)
[2019-10-31] MEDS: POTASSIUM CHLORIDE 8 MEQ TABLET.SA PO SCH (08:15)
[2019-10-31] MEDS: ASCORBIC ACID 500 MG TABLET PO SCH (08:15)
[2019-10-31] MEDS: CLOPIDOGREL 75MG TABLET PO SCH (08:16)
[2019-10-31] MEDS: FUROSEMIDE 40MG TABLET PO SCH ×2 (08:16→16:22)
[2019-10-31] MEDS: CITALOPRAM HYDROBROMIDE 10MG TABLET PO SCH (08:16)
[2019-10-31] MEDS: MIDODRINE HCL 5MG TABLET PO SCH ×2 (08:16→13:31)
[2019-10-31 09:13] LABS: BG BASE EXCESS 1.9 mmol/L (-2.0-2.0); BG CARBOXYHEMOGLOBIN 0.3 % (0.5-1.5); BG DEOXYHEMOGLOBIN 0.9 % (0.0-5.0); BG FRACTION INSPIRED OXYGEN 70; BG HCO3 ACT 26.5 mmol/L (22.0-26.0); BG METHEMOGLOBIN 0.4 % (0.0-1.5); BG OXYGEN SATURATION 99.1 % (92.0-98.5); BG OXYHEMOGLOBIN 98.4 % (94.0-97.0); BG PCO2 41.6 mmHg (35.0-45.0); BG PH 7.422 (7.350-7.450); BG PO2 192.1 mmHg (75.0-100.0); BG SAMPLE SITE RIGHT RADIAL; BG TIDAL VOLUME(mL) 400 mL; BG TOTAL HEMOGLOBIN 8.8 g/dL (12.0-18.0); BG VENT MODE VENT - A/C; BG VENT RATE 12 set
[2019-10-31 09:52] LABS: PLATELET ESTIMATE NORMAL
[2019-10-31] MEDS ORDERED: VANCOMYCIN 1,000 MG in DEXT 5% WATER 250 ML IV SCH (12:00)
[2019-10-31] MEDS ORDERED: MIDODRINE HCL 5MG TABLET PO PRN (16:00)
[2019-11-01] VITALS (25 sets, daily range): BP systolic 111–179; BP diastolic 57–107
[2019-11-01] MEDS: DILTIAZEM HCL 30MG TABLET PO SCH ×5 (00:05→23:44)
[2019-11-01] MEDS: PIPERACILLIN/TAZOBACTAM 2.25 G in DEXTROSE 5% WATER 50 ML IV SCH ×4 (01:40→18:50)
[2019-11-01] MEDS: IPRATROPIUM/ALBUTEROL 0.5-3(2.5)MG/3ML NEB HHN SCH ×3 (02:38→20:59)
[2019-11-01 05:45] LABS: BASOPHILS % 0.4 % (0.0-2.0); EOSINOPHILS % 3.9 % (0.0-5.0); HEMATOCRIT. 26.5 % (42.0-52.0); HEMOGLOBIN. 9.1 g/dL (14.0-18.0); LYMPHOCYTES % 9.1 % (20.0-50.0); MEAN CORPUSCULAR VOLUME 93.5 fL (80.0-94.0); MEAN PLATELET VOLUME 8.7 fl (7.4-10.4); NEUTROPHILS % 80.6 % (40.0-76.0); PLATELET 151 x1000/uL (130-400); RED BLOOD CELL COUNT 2.84 mill/uL (4.7-6.1); RED CELL DISTRIBUTION WIDTH 16.9 % (11.6-14.6)
[2019-11-01] MEDS: ASPIRIN 81MG EC TABLET PO SCH (08:58)
[2019-11-01] MEDS: FAMOTIDINE 20MG TABLET PO SCH (08:58)
[2019-11-01] MEDS: FINASTERIDE 5MG TABLET PO SCH (08:58)
[2019-11-01] MEDS: ZINC SULFATE 220 MG ( 50 ) CAPSULE PO SCH (08:58)
[2019-11-01] MEDS: FUROSEMIDE 40MG TABLET PO SCH ×2 (08:58→16:48)
[2019-11-01] MEDS: ASCORBIC ACID 500 MG TABLET PO SCH (08:58)
[2019-11-01] MEDS: POTASSIUM CHLORIDE 8 MEQ TABLET.SA PO SCH (08:58)
[2019-11-01] MEDS: CLOPIDOGREL 75MG TABLET PO SCH (08:58)
[2019-11-01] MEDS: CITALOPRAM HYDROBROMIDE 10MG TABLET PO SCH (08:59)
[2019-11-01] MEDS: TAMSULOSIN HCL 0.4MG SR CAPSULE PO SCH (08:59)
[2019-11-01 09:08] LABS: BG BASE EXCESS 5.6 mmol/L (-2.0-2.0); BG CARBOXYHEMOGLOBIN 0.7 % (0.5-1.5); BG DEOXYHEMOGLOBIN 1.6 % (0.0-5.0); BG HCO3 ACT 30.2 mmol/L (22.0-26.0); BG METHEMOGLOBIN 0.3 % (0.0-1.5); BG OXYGEN SATURATION 98.4 % (92.0-98.5); BG OXYHEMOGLOBIN 97.4 % (94.0-97.0); BG PCO2 44.6 mmHg (35.0-45.0); BG PH 7.448 (7.350-7.450); BG PO2 109.1 mmHg (75.0-100.0); BG SAMPLE SITE RIGHT RADIAL; BG TIDAL VOLUME(mL) 400 mL; BG TOTAL HEMOGLOBIN 8.4 g/dL (12.0-18.0); BG VENT MODE VENT - A/C; BG VENT RATE 12 set
[2019-11-01 16:50] LABS: BG BASE EXCESS 4.4 mmol/L (-2.0-2.0); BG CARBOXYHEMOGLOBIN 0.3 % (0.5-1.5); BG DEOXYHEMOGLOBIN 2.5 % (0.0-5.0); BG FRACTION INSPIRED OXYGEN 40; BG HCO3 ACT 28.9 mmol/L (22.0-26.0); BG METHEMOGLOBIN 0.4 % (0.0-1.5); BG OXYGEN SATURATION 97.5 % (92.0-98.5); BG OXYHEMOGLOBIN 96.8 % (94.0-97.0); BG PCO2 42.9 mmHg (35.0-45.0); BG PH 7.446 (7.350-7.450); BG PO2 97.1 mmHg (75.0-100.0); BG PRESSURE SUPPORT 10; BG SAMPLE SITE RIGHT RADIAL; BG TOTAL HEMOGLOBIN 9.1 g/dL (12.0-18.0); BG VENT MODE VENT - CPAP
[2019-11-01] MEDS: ACETYLCYSTEINE 100MG/ML 10% VIAL 4ML INH SCH (20:58)
[2019-11-02] VITALS (28 sets, daily range): BP systolic 110–156; BP diastolic 59–77
[2019-11-02] MEDS: PIPERACILLIN/TAZOBACTAM 2.25 G in DEXTROSE 5% WATER 50 ML IV SCH ×4 (02:08→18:20)
[2019-11-02] MEDS: IPRATROPIUM/ALBUTEROL 0.5-3(2.5)MG/3ML NEB HHN SCH ×4 (02:29→20:30)
[2019-11-02 05:58] LABS: BASOPHILS % 0.8 % (0.0-2.0); EOSINOPHILS % 4.8 % (0.0-5.0); HEMATOCRIT. 25.1 % (42.0-52.0); HEMOGLOBIN. 8.6 g/dL (14.0-18.0); LYMPHOCYTES % 12.5 % (20.0-50.0); MEAN CORPUSCULAR VOLUME 93.7 fL (80.0-94.0); MEAN PLATELET VOLUME 8.7 fl (7.4-10.4); MONOCYTES % 5.4 % (2.0-8.0); NEUTROPHILS % 76.5 % (40.0-76.0); PLATELET 172 x1000/uL (130-400); RED BLOOD CELL COUNT 2.68 mill/uL (4.7-6.1); RED CELL DISTRIBUTION WIDTH 16.5 % (11.6-14.6)
[2019-11-02] MEDS: DILTIAZEM HCL 30MG TABLET PO SCH ×3 (06:21→18:20)
[2019-11-02] MEDS: ACETYLCYSTEINE 100MG/ML 10% VIAL 4ML INH SCH ×2 (08:15→14:20)
[2019-11-02] MEDS: FUROSEMIDE 40MG TABLET PO SCH ×2 (09:57→16:34)
[2019-11-02] MEDS: ASPIRIN 81MG EC TABLET PO SCH (09:57)
[2019-11-02] MEDS: CITALOPRAM HYDROBROMIDE 10MG TABLET PO SCH (09:57)
[2019-11-02] MEDS: ZINC SULFATE 220 MG ( 50 ) CAPSULE PO SCH (09:57)
[2019-11-02] MEDS: POTASSIUM CHLORIDE 8 MEQ TABLET.SA PO SCH (09:57)
[2019-11-02] MEDS: FINASTERIDE 5MG TABLET PO SCH (09:57)
[2019-11-02] MEDS: CLOPIDOGREL 75MG TABLET PO SCH (09:57)
[2019-11-02] MEDS: FAMOTIDINE 20MG TABLET PO SCH (09:57)
[2019-11-02] MEDS: ASCORBIC ACID 500 MG TABLET PO SCH (09:57)
[2019-11-02] MEDS: TAMSULOSIN HCL 0.4MG SR CAPSULE PO SCH (09:57)
[2019-11-03] VITALS (12 sets, daily range): BP systolic 116–143; BP diastolic 60–75
[2019-11-03] MEDS: DILTIAZEM HCL 30MG TABLET PO SCH ×5 (00:40→23:55)
[2019-11-03] MEDS: IPRATROPIUM/ALBUTEROL 0.5-3(2.5)MG/3ML NEB HHN SCH ×5 (02:57→22:30)
[2019-11-03 06:39] LABS: BASOPHILS % 0.9 % (0.0-2.0); EOSINOPHILS % 3.8 % (0.0-5.0); HEMATOCRIT. 29.5 % (42.0-52.0); HEMOGLOBIN. 10.1 g/dL (14.0-18.0); LYMPHOCYTES % 11.7 % (20.0-50.0); MEAN CORPUSCULAR HEMOGLOBIN 32.1 pg (28.0-32.0); MEAN CORPUSCULAR VOLUME 93.5 fL (80.0-94.0); MEAN PLATELET VOLUME 8.9 fl (7.4-10.4); MONOCYTES % 8.6 % (2.0-8.0); PLATELET 187 x1000/uL (130-400); RED BLOOD CELL COUNT 3.15 mill/uL (4.7-6.1); RED CELL DISTRIBUTION WIDTH 16.5 % (11.6-14.6)
[2019-11-03] MEDS: POTASSIUM CHLORIDE 8 MEQ TABLET.SA PO SCH (09:26)
[2019-11-03] MEDS: TAMSULOSIN HCL 0.4MG SR CAPSULE PO SCH (09:26)
[2019-11-03] MEDS: ZINC SULFATE 220 MG ( 50 ) CAPSULE PO SCH (09:26)
[2019-11-03] MEDS: CITALOPRAM HYDROBROMIDE 10MG TABLET PO SCH (09:26)
[2019-11-03] MEDS: CLOPIDOGREL 75MG TABLET PO SCH (09:26)
[2019-11-03] MEDS: FUROSEMIDE 40MG TABLET PO SCH ×2 (09:26→18:37)
[2019-11-03] MEDS: FAMOTIDINE 20MG TABLET PO SCH (09:27)
[2019-11-03] MEDS: FINASTERIDE 5MG TABLET PO SCH (09:27)
[2019-11-03] MEDS: ASCORBIC ACID 500 MG TABLET PO SCH (09:27)
[2019-11-03] MEDS: ASPIRIN 81MG EC TABLET PO SCH (09:27)
[2019-11-03] MEDS: ACETYLCYSTEINE 100MG/ML 10% VIAL 4ML INH SCH ×3 (09:36→16:20)
[2019-11-03 12:04] LABS: BG BASE EXCESS 7.4 mmol/L (-2.0-2.0); BG CARBOXYHEMOGLOBIN 0.3 % (0.5-1.5); BG DEOXYHEMOGLOBIN 10.9 % (0.0-5.0); BG FRACTION INSPIRED OXYGEN 21; BG HCO3 ACT 31.4 mmol/L (22.0-26.0); BG METHEMOGLOBIN 0.2 % (0.0-1.5); BG OXYHEMOGLOBIN 88.6 % (94.0-97.0); BG PCO2 41.9 mmHg (35.0-45.0); BG PH 7.492 (7.350-7.450); BG PO2 51.9 mmHg (75.0-100.0); BG SAMPLE SITE RIGHT RADIAL; BG TOTAL HEMOGLOBIN 10.4 g/dL (12.0-18.0); BG VENT MODE ROOM AIR
[2019-11-03] MEDS ORDERED: FURO-151 PO (15:47)
[2019-11-03] MEDS ORDERED: DILT30TA38 MT (15:47)
[2019-11-04] VITALS (11 sets, daily range): BP systolic 108–150; BP diastolic 52–78
[2019-11-04] MEDS: IPRATROPIUM/ALBUTEROL 0.5-3(2.5)MG/3ML NEB HHN SCH ×5 (01:34→20:07)
[2019-11-04] MEDS: DILTIAZEM HCL 30MG TABLET PO SCH ×4 (05:43→23:43)
[2019-11-04] MEDS: ACETYLCYSTEINE 100MG/ML 10% VIAL 4ML INH SCH ×3 (08:22→17:03)
[2019-11-04] MEDS: ASPIRIN 81MG EC TABLET PO SCH (10:12)
[2019-11-04] MEDS: CLOPIDOGREL 75MG TABLET PO SCH (10:12)
[2019-11-04] MEDS: TAMSULOSIN HCL 0.4MG SR CAPSULE PO SCH (10:12)
[2019-11-04] MEDS: FINASTERIDE 5MG TABLET PO SCH (10:13)
[2019-11-04] MEDS: CITALOPRAM HYDROBROMIDE 10MG TABLET PO SCH (10:13)
[2019-11-04] MEDS: FUROSEMIDE 40MG TABLET PO SCH ×2 (10:13→17:14)
[2019-11-04] MEDS: FAMOTIDINE 20MG TABLET PO SCH (10:13)
[2019-11-04] MEDS: POTASSIUM CHLORIDE 8 MEQ TABLET.SA PO SCH (10:13)
== END 2019-11-05 00:29 | disposition home health service (06) | DRG 871 ==
LOC: ER 12:21 → 7EST 14:53 → ENRESERV 15:24 → 5EST 10-29 18:10
PROVIDERS: ADMIT Internal Medicine; ATTEND Internal Medicine
PROC: 5A09357 Assistance with Respiratory Ventilation, Less than 24 Consecutive Hours, Continuous Positive Airway Pressure (ICD-10-PCS; 2019-10-29)
PROC: 5A1945Z Respiratory Ventilation, 24-96 Consecutive Hours (ICD-10-PCS; principal; 2019-10-30)
PROC: 0BH17EZ Insertion of Endotracheal Airway into Trachea, Via Natural or Artificial Opening (ICD-10-PCS; 2019-10-30)
DX: A41.1 Sepsis due to other specified staphylococcus (principal); I50.33 Acute on chronic diastolic (congestive) heart failure; J69.0 Pneumonitis due to inhalation of food and vomit; J96.01 Acute respiratory failure with hypoxia; J44.1 Chronic obstructive pulmonary disease with (acute) exacerbation; N17.9 Acute kidney failure, unspecified; N39.0 Urinary tract infection, site not specified; I13.0 Hypertensive heart and chronic kidney disease with heart failure and stage 1 through stage 4 chronic kidney disease, or unspecified chronic kidney disease; Z20.828 Contact with and (suspected) exposure to other viral communicable diseases; I27.20 Pulmonary hypertension, unspecified; N18.9 Chronic kidney disease, unspecified; D64.9 Anemia, unspecified; N40.0 Benign prostatic hyperplasia without lower urinary tract symptoms; M48.061 Spinal stenosis, lumbar region without neurogenic claudication; I25.2 Old myocardial infarction; Z79.02 Long term (current) use of antithrombotics/antiplatelets; Z86.73 Personal history of transient ischemic attack (TIA), and cerebral infarction without residual deficits; Z79.82 Long term (current) use of aspirin; Z79.899 Other long term (current) drug therapy
CPT/HCPCS: 36415; 36600; 71045; 76604; 78580; 80048; 80053; 80061; 80202; 80305; 81003; 82375; 82550; 82553; 82805; 83605; 83880; 84145; 84439; 84443; 84484; 85025; 85379; 87070; 87420; 87635; 87804; 90686; 90732; 93005; 93306; 97162; 97166; 97530; 99285; J0330; J2060; J2405; J2543; J3370; J3480; J3490; J7060; J7608; U0002

== ENCOUNTER 2020-02-07 00:12 | Inpatient (IN) | payer BC, OTHER ==
[~2020-02-07] VITALS: Ht 185.4 cm; Wt 80.7 kg
[~2020-02-07 00:12] MED LIST changes: -AMOX250S70 GT; +DILT30TA38 MT
[2020-02-07] MEDS ORDERED: ONDANSETRON HCL 4MG/2ML INJ IV STA (00:27)
[2020-02-07] MEDS ORDERED: ALBUTEROL (0.083%) 2.5MG/3ML NEB HHN STA (00:27)
[2020-02-07] MEDS ORDERED: IPRATROPIUM BROMIDE (0.02%) 0.5MG/2.5ML NEB HHN STA (00:27)
[2020-02-07] MEDS ORDERED: SODIUM CHLORIDE 0.9% 1000ML BAG (SEPSIS BOLUS) IV ONE (00:30)
[2020-02-07] MEDS ORDERED: VANCOMYCIN 1 G PREMIX 200 ML IV ONE (00:30)
[2020-02-07] MEDS ORDERED: PIPERACILLIN/TAZ 3.375G PREMIX 50 ML IV ONE (00:30)
[2020-02-07 01:08] LABS: BG BASE EXCESS -2.7 mmol/L (-2.0-2.0); BG CARBOXYHEMOGLOBIN 0.3 % (0.5-1.5); BG DEOXYHEMOGLOBIN 6.1 % (0.0-5.0); BG FRACTION INSPIRED OXYGEN 21; BG HCO3 ACT 20.6 mmol/L (22.0-26.0); BG METHEMOGLOBIN 0.2 % (0.0-1.5); BG OXYGEN SATURATION 93.9 % (92.0-98.5); BG OXYHEMOGLOBIN 93.4 % (94.0-97.0); BG PCO2 30.6 mmHg (35.0-45.0); BG PH 7.446 (7.350-7.450); BG PO2 66.8 mmHg (75.0-100.0); BG SAMPLE SITE RIGHT RADIAL; BG TOTAL HEMOGLOBIN 10.5 g/dL (12.0-18.0); BG VENT MODE ROOM AIR
[2020-02-07 01:08] LABS: BASOPHILS % 0.3 % (0.0-2.0); EOSINOPHILS % 0.1 % (0.0-5.0); HEMATOCRIT. 30.3 % (42.0-52.0); HEMOGLOBIN. 10.3 g/dL (14.0-18.0); LYMPHOCYTES % 9.1 % (20.0-50.0); MEAN CORPUSCULAR HEMOGLOBIN 32.5 pg (28.0-32.0); MEAN CORPUSCULAR VOLUME 95.8 fL (80.0-94.0); MEAN PLATELET VOLUME 8.6 fl (7.4-10.4); MONOCYTES % 8.8 % (2.0-8.0); NEUTROPHILS % 81.7 % (40.0-76.0); PLATELET 301 x1000/uL (130-400); RED BLOOD CELL COUNT 3.16 mill/uL (4.7-6.1); RED CELL DISTRIBUTION WIDTH 16.2 % (11.6-14.6)
[2020-02-07 01:12] LABS: CHLORIDE 111 mEq/L (98-107)
[2020-02-07] MEDS ORDERED: SODIUM CHLORIDE 0.9% 1,000 ML IV NR (01:45)
[2020-02-07 02:00] LABS: INR 1.1
[2020-02-07] MEDS ORDERED: VANCOMYCIN 1 G PREMIX 200 ML IV NR (02:00)
[2020-02-07 06:20] LABS: CLARITY URINE CLOUDY (CLEAR); COLOR URINE YELLOW (YELLOW); KETONES URINE NEGATIVE (NEGATIVE); LEUKOCYTE ESTERASE URINE NEGATIVE (NEGATIVE); NITRITE URINE NEGATIVE (NEGATIVE); OCCULT BLOOD URINE NEGATIVE (NEGATIVE); PROTEIN URINE NEGATIVE (NEGATIVE); SPECIFIC GRAVITY URINE 1.012 (1.005-1.030); UROBILINOGEN URINE 0.2 E.U./dL (0.2-1.0)
[2020-02-07 09:24] VITALS: BP 153/75
[2020-02-07] MEDS ORDERED: DOCUSATE SODIUM 100MG CAPSULE PO PRN (11:15)
[2020-02-07] MEDS ORDERED: MAGNESIUM/ALUMINUM HYDROXIDE/SIMETHICONE 30ML UDC PO PRN (11:15)
[2020-02-07] MEDS ORDERED: ACETAMINOPHEN 325MG TABLET PO PRN (11:15)
[2020-02-07] MEDS ORDERED: DIPHENHYDRAMINE 50MG/ML VIAL IV PRN (11:15)
[2020-02-07] MEDS ORDERED: NA PHOS,M-B/NA PHOS,DI-BA ENEMA 118ML PR PRN (11:15)
[2020-02-07] MEDS ORDERED: CLONIDINE 0.1MG TABLET PO PRN (11:15)
[2020-02-07] MEDS ORDERED: IPRATROPIUM/ALBUTEROL 0.5-3(2.5)MG/3ML NEB NEB SCH (11:15)
[2020-02-07] MEDS ORDERED: PIPERACILLIN/TAZ 3.375G PREMIX 50 ML IV SCH (11:15)
[2020-02-07] MEDS ORDERED: LORAZEPAM 0.5MG TABLET PO PRN (11:15)
[2020-02-07] MEDS ORDERED: IPRATROPIUM/ALBUTEROL 0.5-3(2.5)MG/3ML NEB NEB PRN (11:15)
[2020-02-07] MEDS ORDERED: GUAIFENESIN 200MG/10ML SUGAR FREE UDC PO PRN (11:15)
[2020-02-07] MEDS ORDERED: ACETAMINOPHEN 650MG SUPP PR PRN (11:15)
[2020-02-07] MEDS ORDERED: HYDROCODONE/ACETAMINOPHEN 5/325MG TABLET PO PRN (11:15)
[2020-02-07] MEDS ORDERED: ONDANSETRON HCL 4MG/2ML INJ IV PRN (11:15)
[2020-02-07] MEDS: PIPERACILLIN/TAZOBACTAM 3.375 G in DEXT 5% WATER 100 ML IV SCH ×2 (13:42→17:20)
[2020-02-07] MEDS: ENOXAPARIN 40MG/0.4ML SYR SUBCUT SCH (13:44)
[2020-02-07 14:00] VITALS: BP 120/81
[2020-02-07 16:00] VITALS: BP 107/62
[2020-02-07 16:09] LABS: BG BASE EXCESS -2.9 mmol/L (-2.0-2.0); BG CARBOXYHEMOGLOBIN 0.3 % (0.5-1.5); BG DEOXYHEMOGLOBIN 1.6 % (0.0-5.0); BG FRACTION INSPIRED OXYGEN 28; BG HCO3 ACT 21.5 mmol/L (22.0-26.0); BG METHEMOGLOBIN 0.3 % (0.0-1.5); BG OXYGEN SATURATION 98.4 % (92.0-98.5); BG OXYHEMOGLOBIN 97.8 % (94.0-97.0); BG PH 7.395 (7.350-7.450); BG PO2 144.4 mmHg (75.0-100.0); BG SAMPLE SITE RIGHT RADIAL; BG TOTAL HEMOGLOBIN 9.1 g/dL (12.0-18.0); BG VENT MODE NASAL CANNULA
[2020-02-07] MEDS ORDERED: ALBUTEROL 6.7GM HFA INHALER ORI PRN (16:30)
[2020-02-07] MEDS: DILTIAZEM HCL 30MG TABLET PO SCH ×2 (19:40→21:00)
[2020-02-07 20:00] VITALS: BP 95/62
[2020-02-07] MEDS: FAMOTIDINE 20MG TABLET PO SCH (21:02)
[2020-02-08] VITALS (7 sets, daily range): BP systolic 116–189; BP diastolic 74–87
[2020-02-08] MEDS: PIPERACILLIN/TAZOBACTAM 3.375 G in DEXT 5% WATER 100 ML IV SCH ×5 (00:56→23:06)
[2020-02-08] MEDS: CLOPIDOGREL 75MG TABLET PO SCH (08:14)
[2020-02-08] MEDS: TAMSULOSIN HCL 0.4MG SR CAPSULE PO SCH (08:15)
[2020-02-08] MEDS: DILTIAZEM HCL 30MG TABLET PO SCH ×4 (08:15→21:21)
[2020-02-08] MEDS: CITALOPRAM HYDROBROMIDE 10MG TABLET PO SCH (08:15)
[2020-02-08] MEDS: ASPIRIN 81MG EC TABLET PO SCH (08:15)
[2020-02-08] MEDS: PREDNISONE 20MG TABLET PO SCH (08:15)
[2020-02-08] MEDS: ENOXAPARIN 40MG/0.4ML SYR SUBCUT SCH (08:24)
[2020-02-08] MEDS ORDERED: ESCITALOPRAM OXALATE MT SCH (09:00)
[2020-02-08] MEDS ORDERED: MEDICATION NOT ON FORMULARY EA (Finasteride 1 TAB) MT SCH (09:00)
[2020-02-08] MEDS ORDERED: HYDRALAZINE 20MG/ML VIAL IV NR (11:08)
[2020-02-08 12:06] LABS: HEMATOCRIT. 29.4 % (42.0-52.0); HEMOGLOBIN. 9.9 g/dL (14.0-18.0); MEAN CORPUSCULAR HEMOGLOBIN 32.7 pg (28.0-32.0); MEAN CORPUSCULAR VOLUME 96.7 fL (80.0-94.0); PLATELET 237 x1000/uL (130-400); RED BLOOD CELL COUNT 3.05 mill/uL (4.7-6.1); RED CELL DISTRIBUTION WIDTH 15.9 % (11.6-14.6)
[2020-02-08 12:44] LABS: CHLORIDE 115 mEq/L (98-107)
[2020-02-08 14:16] LABS: PLATELET ESTIMATE NORMAL
[2020-02-08 14:42] LABS: BG BASE EXCESS -1.5 mmol/L (-2.0-2.0); BG CARBOXYHEMOGLOBIN 0.3 % (0.5-1.5); BG DEOXYHEMOGLOBIN 1.7 % (0.0-5.0); BG HCO3 ACT 22.8 mmol/L (22.0-26.0); BG METHEMOGLOBIN 0.3 % (0.0-1.5); BG OXYGEN SATURATION 98.3 % (92.0-98.5); BG OXYHEMOGLOBIN 97.7 % (94.0-97.0); BG PCO2 36.5 mmHg (35.0-45.0); BG PH 7.413 (7.350-7.450); BG PO2 132.3 mmHg (75.0-100.0); BG SAMPLE SITE RIGHT RADIAL; BG TOTAL HEMOGLOBIN 10.6 g/dL (12.0-18.0); BG VENT MODE NASAL CANNULA
[2020-02-08] MEDS: HYDRALAZINE HCL 50MG TABLET PO SCH (21:21)
[2020-02-08] MEDS: AMLODIPINE 5MG TABLET PO SCH (21:22)
[2020-02-08] MEDS: FAMOTIDINE 20MG TABLET PO SCH (23:06)
[2020-02-09 00:46] VITALS: BP 136/79
[2020-02-09 04:47] VITALS: BP 136/78
[2020-02-09] MEDS: HYDRALAZINE HCL 50MG TABLET PO SCH ×3 (05:50→20:04)
[2020-02-09] MEDS: PIPERACILLIN/TAZOBACTAM 3.375 G in DEXT 5% WATER 100 ML IV SCH ×4 (05:50→23:40)
[2020-02-09 07:20] LABS: HEMATOCRIT. 28.5 % (42.0-52.0); HEMOGLOBIN. 9.7 g/dL (14.0-18.0); MEAN CORPUSCULAR HEMOGLOBIN 32.7 pg (28.0-32.0); MEAN PLATELET VOLUME 8.9 fl (7.4-10.4); PLATELET 241 x1000/uL (130-400); RED BLOOD CELL COUNT 2.97 mill/uL (4.7-6.1)
[2020-02-09 07:23] LABS: CHLORIDE 116 mEq/L (98-107)
[2020-02-09 08:30] VITALS: BP 142/78
[2020-02-09] MEDS: DILTIAZEM HCL 30MG TABLET PO SCH ×4 (08:33→20:04)
[2020-02-09] MEDS: TAMSULOSIN HCL 0.4MG SR CAPSULE PO SCH (08:34)
[2020-02-09] MEDS: CLOPIDOGREL 75MG TABLET PO SCH (08:34)
[2020-02-09] MEDS: ASPIRIN 81MG EC TABLET PO SCH (08:34)
[2020-02-09] MEDS: PREDNISONE 20MG TABLET PO SCH (08:34)
[2020-02-09] MEDS: CITALOPRAM HYDROBROMIDE 10MG TABLET PO SCH (08:34)
[2020-02-09] MEDS: AMLODIPINE 5MG TABLET PO SCH ×2 (08:34→20:04)
[2020-02-09] MEDS: ENOXAPARIN 40MG/0.4ML SYR SUBCUT SCH (08:35)
[2020-02-09 12:20] VITALS: BP 141/81
[2020-02-09 15:48] VITALS: BP 108/64
[2020-02-09 17:35] LABS: PLATELET ESTIMATE NORMAL
[2020-02-09 18:25] LABS: CLARITY URINE CLOUDY (CLEAR); COLOR URINE YELLOW (YELLOW); KETONES URINE NEGATIVE (NEGATIVE); LEUKOCYTE ESTERASE URINE 1+ (NEGATIVE); NITRITE URINE NEGATIVE (NEGATIVE); OCCULT BLOOD URINE 1+ (NEGATIVE); PH URINE 5.5 (4.5-8.0); PROTEIN URINE 2+ (NEGATIVE); SPECIFIC GRAVITY URINE 1.019 (1.005-1.030); UROBILINOGEN URINE 0.2 E.U./dL (0.2-1.0)
[2020-02-09 20:42] VITALS: BP 140/70
[2020-02-09] MEDS: FAMOTIDINE 20MG TABLET PO SCH (21:00)
[2020-02-10] VITALS: BP 125/71
[2020-02-10 04:00] VITALS: BP 143/89
[2020-02-10] MEDS: HYDRALAZINE HCL 50MG TABLET PO SCH ×3 (05:48→21:16)
[2020-02-10] MEDS: PIPERACILLIN/TAZOBACTAM 3.375 G in DEXT 5% WATER 100 ML IV SCH ×3 (05:49→18:33)
[2020-02-10 08:29] VITALS: BP 161/79
[2020-02-10] MEDS: CLOPIDOGREL 75MG TABLET PO SCH (09:28)
[2020-02-10] MEDS: PREDNISONE 20MG TABLET PO SCH (09:28)
[2020-02-10] MEDS: AMLODIPINE 5MG TABLET PO SCH ×2 (09:28→21:16)
[2020-02-10] MEDS: CITALOPRAM HYDROBROMIDE 10MG TABLET PO SCH (09:28)
[2020-02-10] MEDS: ASPIRIN 81MG EC TABLET PO SCH (09:29)
[2020-02-10] MEDS: DILTIAZEM HCL 30MG TABLET PO SCH ×4 (09:29→21:15)
[2020-02-10] MEDS: ENOXAPARIN 40MG/0.4ML SYR SUBCUT SCH (09:30)
[2020-02-10] MEDS: TAMSULOSIN HCL 0.4MG SR CAPSULE PO SCH (09:41)
[2020-02-10 11:34] VITALS: BP 160/80
[2020-02-10] MEDS ORDERED: IPRATROPIUM/ALBUTEROL 0.5-3(2.5)MG/3ML NEB HHN SCH (13:00)
[2020-02-10 13:15] LABS: BG BASE EXCESS -1.2 mmol/L (-2.0-2.0); BG CARBOXYHEMOGLOBIN 0.3 % (0.5-1.5); BG DEOXYHEMOGLOBIN 1.8 % (0.0-5.0); BG FRACTION INSPIRED OXYGEN 28; BG HCO3 ACT 22.9 mmol/L (22.0-26.0); BG METHEMOGLOBIN 0.2 % (0.0-1.5); BG OXYGEN SATURATION 98.2 % (92.0-98.5); BG OXYHEMOGLOBIN 97.7 % (94.0-97.0); BG PCO2 36.1 mmHg (35.0-45.0); BG PH 7.421 (7.350-7.450); BG PO2 130.2 mmHg (75.0-100.0); BG SAMPLE SITE RIGHT RADIAL; BG TOTAL HEMOGLOBIN 10.2 g/dL (12.0-18.0); BG VENT MODE NASAL CANNULA
[2020-02-10] MEDS: METHYLPREDNISOLONE SOD SUCC 40 MG/ML VIAL IV SCH ×2 (13:20→21:17)
[2020-02-10 13:36] LABS: HEMATOCRIT. 27.5 % (42.0-52.0); HEMOGLOBIN. 9.4 g/dL (14.0-18.0); MEAN CORPUSCULAR VOLUME 96.3 fL (80.0-94.0); MEAN PLATELET VOLUME 8.7 fl (7.4-10.4); PLATELET 227 x1000/uL (130-400); RED BLOOD CELL COUNT 2.85 mill/uL (4.7-6.1); RED CELL DISTRIBUTION WIDTH 16.2 % (11.6-14.6)
[2020-02-10 13:41] LABS: CHLORIDE 114 mEq/L (98-107)
[2020-02-10 14:11] LABS: PLATELET ESTIMATE NORMAL
[2020-02-10 16:24] VITALS: BP 133/71
[2020-02-10 20:35] VITALS: BP 129/79
[2020-02-10] MEDS: IPRATROPIUM/ALBUTEROL 0.5-3(2.5)MG/3ML NEB HHN SCH (20:42)
[2020-02-10] MEDS: FAMOTIDINE 20MG TABLET PO SCH (21:16)
[2020-02-11] VITALS (7 sets, daily range): BP systolic 128–148; BP diastolic 61–75
[2020-02-11] MEDS: PIPERACILLIN/TAZOBACTAM 3.375 G in DEXT 5% WATER 100 ML IV SCH ×4 (01:07→17:37)
[2020-02-11] MEDS: IPRATROPIUM/ALBUTEROL 0.5-3(2.5)MG/3ML NEB HHN SCH ×3 (02:38→21:19)
[2020-02-11] MEDS: METHYLPREDNISOLONE SOD SUCC 40 MG/ML VIAL IV SCH ×2 (04:51→15:27)
[2020-02-11] MEDS: HYDRALAZINE HCL 50MG TABLET PO SCH ×2 (04:51→15:27)
[2020-02-11] MEDS: CITALOPRAM HYDROBROMIDE 10MG TABLET PO SCH (09:07)
[2020-02-11] MEDS: CLOPIDOGREL 75MG TABLET PO SCH (09:07)
[2020-02-11] MEDS: TAMSULOSIN HCL 0.4MG SR CAPSULE PO SCH (09:09)
[2020-02-11] MEDS: DILTIAZEM HCL 30MG TABLET PO SCH ×3 (09:09→17:37)
[2020-02-11] MEDS: AMLODIPINE 5MG TABLET PO SCH (09:09)
[2020-02-11] MEDS: ASPIRIN 81MG EC TABLET PO SCH (09:09)
[2020-02-11] MEDS: ENOXAPARIN 40MG/0.4ML SYR SUBCUT SCH (09:10)
[2020-02-11] MEDS ORDERED: AMOX1TAB15 MT (13:16)
== END 2020-02-11 22:20 | disposition home health service (06) | DRG 177 ==
LOC: ER 00:12 → 7WST 02:05 → EDBEDREQTM 02:13 → EDBEDREQ 02:13 → ENRESERV 07:37 → 6WST 02-08 23:39
PROVIDERS: ADMIT Internal Medicine; ATTEND Internal Medicine
PROC: 5A09357 Assistance with Respiratory Ventilation, Less than 24 Consecutive Hours, Continuous Positive Airway Pressure (ICD-10-PCS; principal; 2020-02-10)
DX: J69.0 Pneumonitis due to inhalation of food and vomit (principal); I50.33 Acute on chronic diastolic (congestive) heart failure; I13.0 Hypertensive heart and chronic kidney disease with heart failure and stage 1 through stage 4 chronic kidney disease, or unspecified chronic kidney disease; E87.2 Acidosis; F03.90 Unspecified dementia, unspecified severity, without behavioral disturbance, psychotic disturbance, mood disturbance, and anxiety; M48.07 Spinal stenosis, lumbosacral region; D63.8 Anemia in other chronic diseases classified elsewhere; Z20.828 Contact with and (suspected) exposure to other viral communicable diseases; N40.0 Benign prostatic hyperplasia without lower urinary tract symptoms; N18.9 Chronic kidney disease, unspecified; M48.061 Spinal stenosis, lumbar region without neurogenic claudication; I27.20 Pulmonary hypertension, unspecified; I25.10 Atherosclerotic heart disease of native coronary artery without angina pectoris; E88.09 Other disorders of plasma-protein metabolism, not elsewhere classified; J44.9 Chronic obstructive pulmonary disease, unspecified; R73.9 Hyperglycemia, unspecified; Z93.1 Gastrostomy status; I25.2 Old myocardial infarction; Z87.01 Personal history of pneumonia (recurrent); Z86.73 Personal history of transient ischemic attack (TIA), and cerebral infarction without residual deficits; Z79.02 Long term (current) use of antithrombotics/antiplatelets; Z79.82 Long term (current) use of aspirin; Z79.899 Other long term (current) drug therapy; R06.03 Acute respiratory distress
CPT/HCPCS: 36415; 36600; 71045; 80048; 80053; 81003; 82375; 82805; 83605; 84145; 84443; 84484; 85025; 87635; 93005; 94640; 94660; 96365; 99291; J0360; J1650; J2405; J2543; J2920; J3370; J7030; J7060; J7512

== ENCOUNTER 2020-03-18 01:15 | Inpatient (IN) | payer BC, OTHER ==
[~2020-03-18] VITALS: Ht 172.7 cm; Wt 74.0 kg
[~2020-03-18 01:15] MED LIST changes: +AMOX1TAB15 MT; -FINA1TAB18 MT; -FURO40TA5 PO
[2020-03-18] MEDS ORDERED: ACETAMINOPHEN 325MG TABLET PO STA (02:27)
[2020-03-18 04:00] LABS: HEMATOCRIT. 25.1 % (42.0-52.0); HEMOGLOBIN. 8.2 g/dL (14.0-18.0); MEAN CORPUSCULAR HEMOGLOBIN 29.7 pg (28.0-32.0); MEAN CORPUSCULAR VOLUME 90.4 fL (80.0-94.0); PLATELET 314 x1000/uL (130-400); RED BLOOD CELL COUNT 2.77 mill/uL (4.7-6.1); RED CELL DISTRIBUTION WIDTH 16.2 % (11.6-14.6)
[2020-03-18 04:04] LABS: CHLORIDE 100 mEq/L (98-107)
[2020-03-18 04:11] LABS: D-DIMER 3.49 mg/L FEU (<0.50); INR 1.4; PROTHROMBIN TIME 14.1 sec (9.6-11.0)
[2020-03-18 04:16] LABS: CREATINE KINASE 241 IU/L (39-308)
[2020-03-18 04:51] LABS: PLATELET ESTIMATE NORMAL
[2020-03-18 04:58] LABS: CLARITY URINE CLOUDY (CLEAR); COLOR URINE YELLOW (YELLOW); KETONES URINE NEGATIVE (NEGATIVE); LEUKOCYTE ESTERASE URINE 3+ (NEGATIVE); NITRITE URINE POSITIVE (NEGATIVE); OCCULT BLOOD URINE 2+ (NEGATIVE); PH URINE 7.5 (4.5-8.0); PROTEIN URINE 2+ (NEGATIVE); SPECIFIC GRAVITY URINE 1.011 (1.005-1.030); UROBILINOGEN URINE 0.2 E.U./dL (0.2-1.0)
[2020-03-18] MEDS ORDERED: IBUPROFEN 600MG TABLET PO NR (05:00)
[2020-03-18] MEDS ORDERED: VANCOMYCIN 1 G PREMIX 200 ML IV NR (05:30)
[2020-03-18] MEDS ORDERED: PIPERACILLIN/TAZOBACTAM 3.375GM/50ML PREMIX IV ONE (05:30)
[2020-03-18] MEDS ORDERED: PIPERACILLIN/TAZ 3.375G PREMIX 50 ML IV NR (05:45)
[2020-03-18] MEDS ORDERED: ONDANSETRON HCL 4MG/2ML INJ IV PRN (10:45)
[2020-03-18] MEDS ORDERED: ALBUTEROL 6.7GM HFA INHALER ORI SCH (11:00)
[2020-03-18] MEDS ORDERED: CEFTRIAXONE 1 G PREMIX 50 ML IV SCH (11:00)
[2020-03-18] MEDS: DEXT 5%/0.45% NACL 1000ML 1,000 ML IV SCH (11:32)
[2020-03-18] MEDS: AZITHROMYCIN 250 MG TABLET PO SCH (11:51)
[2020-03-18] MEDS ORDERED: ACETAMINOPHEN 325MG TABLET PO PRN (15:30)
[2020-03-18 15:46] LABS: BG BASE EXCESS 0.2 mmol/L (-2.0-2.0); BG CARBOXYHEMOGLOBIN 0.2 % (0.5-1.5); BG DEOXYHEMOGLOBIN 4.3 % (0.0-5.0); BG FRACTION INSPIRED OXYGEN 21; BG METHEMOGLOBIN 0.2 % (0.0-1.5); BG OXYGEN SATURATION 95.7 % (92.0-98.5); BG OXYHEMOGLOBIN 95.3 % (94.0-97.0); BG PCO2 35.1 mmHg (35.0-45.0); BG PH 7.452 (7.350-7.450); BG PO2 81.7 mmHg (75.0-100.0); BG SAMPLE SITE RIGHT RADIAL; BG TOTAL HEMOGLOBIN 8.6 g/dL (12.0-18.0); BG VENT MODE ROOM AIR
[2020-03-18 15:50] VITALS: BP 133/71
[2020-03-18 16:00] VITALS: BP 133/71
[2020-03-18 20:28] VITALS: BP 168/77
[2020-03-18] MEDS: FAMOTIDINE 20MG TABLET PO SCH (20:53)
[2020-03-19] VITALS: BP 185/74
[2020-03-19] MEDS: DEXT 5%/0.45% NACL 1000ML 1,000 ML IV SCH (01:03)
[2020-03-19] MEDS ORDERED: CLONIDINE 0.1MG TABLET PO PRN (02:00)
[2020-03-19] MEDS: AMLODIPINE 10MG TABLET PO SCH ×2 (02:04→08:33)
[2020-03-19 04:00] VITALS: BP 136/73
[2020-03-19 08:05] VITALS: BP 148/74
[2020-03-19 08:22] LABS: BG CARBOXYHEMOGLOBIN 0.3 % (0.5-1.5); BG DEOXYHEMOGLOBIN 3.1 % (0.0-5.0); BG FRACTION INSPIRED OXYGEN 28; BG HCO3 ACT 21.1 mmol/L (22.0-26.0); BG METHEMOGLOBIN 0.4 % (0.0-1.5); BG OXYGEN SATURATION 96.9 % (92.0-98.5); BG OXYHEMOGLOBIN 96.2 % (94.0-97.0); BG PCO2 29.9 mmHg (35.0-45.0); BG PH 7.466 (7.350-7.450); BG PO2 90.8 mmHg (75.0-100.0); BG SAMPLE SITE RIGHT RADIAL; BG TOTAL HEMOGLOBIN 9.7 g/dL (12.0-18.0); BG VENT MODE NASAL CANNULA
[2020-03-19] MEDS: AZITHROMYCIN 250 MG TABLET PO SCH (08:32)
[2020-03-19 08:33] LABS: HEMATOCRIT. 28.4 % (42.0-52.0); HEMOGLOBIN. 9.6 g/dL (14.0-18.0); MEAN CORPUSCULAR HEMOGLOBIN 30.7 pg (28.0-32.0); MEAN CORPUSCULAR VOLUME 90.7 fL (80.0-94.0); MEAN PLATELET VOLUME 7.9 fl (7.4-10.4); PLATELET 350 x1000/uL (130-400); RED BLOOD CELL COUNT 3.14 mill/uL (4.7-6.1); RED CELL DISTRIBUTION WIDTH 16.2 % (11.6-14.6)
[2020-03-19] MEDS: TAMSULOSIN HCL 0.4MG SR CAPSULE PO SCH (08:33)
[2020-03-19 08:44] LABS: CHLORIDE 106 mEq/L (98-107)
[2020-03-19 12:12] VITALS: BP 111/66
[2020-03-19] MEDS: CEFTRIAXONE 1,000 MG in DEXTROSE 5% WATER 50 ML IV SCH (12:15)
[2020-03-19 16:10] VITALS: BP 104/60
[2020-03-19] MEDS: IPRATROPIUM/ALBUTEROL 0.5-3(2.5)MG/3ML NEB HHN SCH ×2 (16:36→21:22)
[2020-03-19] MEDS ORDERED: LORAZEPAM 2MG/ML CPJ IV PRN (17:00)
[2020-03-19] MEDS ORDERED: HYDROCODONE/ACETAMINOPHEN 5/325MG TABLET PO PRN (17:00)
[2020-03-19] MEDS ORDERED: LACTULOSE 20G/30ML UDC PO PRN (17:00)
[2020-03-19] MEDS ORDERED: HYDRALAZINE 20MG/ML VIAL IV PRN (17:00)
[2020-03-19] MEDS: METHYLPREDNISOLONE SOD SUCC 40 MG/ML VIAL IV SCH (18:12)
[2020-03-19] MEDS ORDERED: VANCOMYCIN 1250MG in DEXTROSE 5% WATER 250ML IV SCH (19:00)
[2020-03-19 20:00] VITALS: BP 102/63
[2020-03-19] MEDS: FAMOTIDINE 20MG TABLET PO SCH (20:20)
[2020-03-20] VITALS (7 sets, daily range): BP systolic 98–125; BP diastolic 57–71
[2020-03-20] MEDS: IPRATROPIUM/ALBUTEROL 0.5-3(2.5)MG/3ML NEB HHN SCH ×6 (01:09→21:55)
[2020-03-20] MEDS: METHYLPREDNISOLONE SOD SUCC 40 MG/ML VIAL IV SCH ×3 (02:20→18:27)
[2020-03-20 07:53] LABS: HEMATOCRIT. 23.5 % (42.0-52.0); HEMOGLOBIN. 7.8 g/dL (14.0-18.0); MEAN CORPUSCULAR HEMOGLOBIN 30.5 pg (28.0-32.0); MEAN PLATELET VOLUME 8.6 fl (7.4-10.4); PLATELET 282 x1000/uL (130-400); RED BLOOD CELL COUNT 2.55 mill/uL (4.7-6.1); RED CELL DISTRIBUTION WIDTH 16.2 % (11.6-14.6)
[2020-03-20 07:58] LABS: CHLORIDE 108 mEq/L (98-107)
[2020-03-20] MEDS: AZITHROMYCIN 250 MG TABLET PO SCH (09:25)
[2020-03-20] MEDS: AMLODIPINE 10MG TABLET PO SCH (09:25)
[2020-03-20] MEDS: TAMSULOSIN HCL 0.4MG SR CAPSULE PO SCH (09:25)
[2020-03-20 10:11] LABS: BG BASE EXCESS -1.8 mmol/L (-2.0-2.0); BG BILEVEL POS AIRWAY PRESSURE 15/5; BG CARBOXYHEMOGLOBIN 0.3 % (0.5-1.5); BG DEOXYHEMOGLOBIN 1.2 % (0.0-5.0); BG FRACTION INSPIRED OXYGEN 30; BG HCO3 ACT 21.8 mmol/L (22.0-26.0); BG METHEMOGLOBIN 0.3 % (0.0-1.5); BG OXYGEN SATURATION 98.8 % (92.0-98.5); BG OXYHEMOGLOBIN 98.2 % (94.0-97.0); BG PH 7.451 (7.350-7.450); BG SAMPLE SITE RIGHT RADIAL; BG TOTAL HEMOGLOBIN 7.8 g/dL (12.0-18.0); BG VENT MODE MASK - BIPAP; BG VENT RATE 16 set
[2020-03-20 10:46] LABS: PLATELET ESTIMATE NORMAL
[2020-03-20] MEDS: CEFTRIAXONE 1,000 MG in DEXTROSE 5% WATER 50 ML IV SCH (11:16)
[2020-03-20] MEDS: CEFTAZIDIME PENTAHYDRATE 2 G in DEXT 5% WATER 100 ML IV SCH (17:29)
[2020-03-20] MEDS: FAMOTIDINE 20MG TABLET PO SCH (20:34)
[2020-03-20 22:27] LABS: PLATELET ESTIMATE NORMAL
[2020-03-21] VITALS: BP 111/58
[2020-03-21] MEDS: IPRATROPIUM/ALBUTEROL 0.5-3(2.5)MG/3ML NEB HHN SCH ×6 (01:38→21:40)
[2020-03-21] MEDS: METHYLPREDNISOLONE SOD SUCC 40 MG/ML VIAL IV SCH ×3 (01:46→17:13)
[2020-03-21 04:00] VITALS: BP 133/59
[2020-03-21] MEDS: CEFTAZIDIME PENTAHYDRATE 2 G in DEXT 5% WATER 100 ML IV SCH ×2 (05:31→17:13)
[2020-03-21 05:45] LABS: CHLORIDE 109 mEq/L (98-107)
[2020-03-21 06:16] LABS: HEMATOCRIT. 22.8 % (42.0-52.0); HEMOGLOBIN. 7.7 g/dL (14.0-18.0); MEAN CORPUSCULAR HEMOGLOBIN 30.5 pg (28.0-32.0); MEAN CORPUSCULAR VOLUME 90.7 fL (80.0-94.0); MEAN PLATELET VOLUME 8.2 fl (7.4-10.4); PLATELET 318 x1000/uL (130-400); RED BLOOD CELL COUNT 2.51 mill/uL (4.7-6.1); RED CELL DISTRIBUTION WIDTH 16.3 % (11.6-14.6)
[2020-03-21 08:00] VITALS: BP 139/72
[2020-03-21] MEDS: AMLODIPINE 10MG TABLET PO SCH (09:52)
[2020-03-21] MEDS: TAMSULOSIN HCL 0.4MG SR CAPSULE PO SCH (09:52)
[2020-03-21] MEDS: AZITHROMYCIN 250 MG TABLET PO SCH (09:52)
[2020-03-21 12:00] VITALS: BP 126/66
[2020-03-21 13:37] LABS: PLATELET ESTIMATE NORMAL
[2020-03-21 16:00] VITALS: BP 126/66
[2020-03-21 20:00] VITALS: BP 115/62
[2020-03-21] MEDS: FAMOTIDINE 20MG TABLET PO SCH (20:32)
[2020-03-22] VITALS: BP 116/65
[2020-03-22] MEDS: IPRATROPIUM/ALBUTEROL 0.5-3(2.5)MG/3ML NEB HHN SCH ×6 (01:01→21:40)
[2020-03-22 04:00] VITALS: BP 125/62
[2020-03-22] MEDS: CEFTAZIDIME PENTAHYDRATE 2 G in DEXT 5% WATER 100 ML IV SCH ×2 (04:41→17:55)
[2020-03-22] MEDS: AZITHROMYCIN 250 MG TABLET PO SCH (08:54)
[2020-03-22] MEDS: PREDNISONE 20MG TABLET PO SCH (08:54)
[2020-03-22] MEDS: TAMSULOSIN HCL 0.4MG SR CAPSULE PO SCH (08:57)
[2020-03-22] MEDS: AMLODIPINE 10MG TABLET PO SCH (08:58)
[2020-03-22 09:01] VITALS: BP 142/65
[2020-03-22 09:30] LABS: HEMATOCRIT. 24.3 % (42.0-52.0); HEMOGLOBIN. 8.1 g/dL (14.0-18.0); MEAN CORPUSCULAR HEMOGLOBIN 30.4 pg (28.0-32.0); MEAN CORPUSCULAR VOLUME 91.6 fL (80.0-94.0); MEAN PLATELET VOLUME 7.9 fl (7.4-10.4); PLATELET 332 x1000/uL (130-400); RED BLOOD CELL COUNT 2.65 mill/uL (4.7-6.1); RED CELL DISTRIBUTION WIDTH 16.1 % (11.6-14.6)
[2020-03-22 09:40] LABS: CHLORIDE 110 mEq/L (98-107)
[2020-03-22 10:19] LABS: PLATELET ESTIMATE NORMAL
[2020-03-22 11:57] VITALS: BP 128/58
[2020-03-22 12:41] LABS: BG BASE EXCESS 0.2 mmol/L (-2.0-2.0); BG CARBOXYHEMOGLOBIN 0.3 % (0.5-1.5); BG FRACTION INSPIRED OXYGEN 32; BG HCO3 ACT 23.9 mmol/L (22.0-26.0); BG METHEMOGLOBIN 0.2 % (0.0-1.5); BG OXYHEMOGLOBIN 97.5 % (94.0-97.0); BG PCO2 34.8 mmHg (35.0-45.0); BG PH 7.455 (7.350-7.450); BG PO2 112.8 mmHg (75.0-100.0); BG SAMPLE SITE RIGHT RADIAL; BG TOTAL HEMOGLOBIN 8.1 g/dL (12.0-18.0); BG VENT MODE NASAL CANNULA
[2020-03-22 16:46] VITALS: BP 128/66
[2020-03-22 20:00] VITALS: BP 134/67
[2020-03-22] MEDS: FAMOTIDINE 20MG TABLET PO SCH (20:20)
[2020-03-23] VITALS: BP 123/62
[2020-03-23] MEDS: IPRATROPIUM/ALBUTEROL 0.5-3(2.5)MG/3ML NEB HHN SCH ×3 (00:37→08:54)
[2020-03-23 01:06] VITALS: BP 133/68
[2020-03-23 04:00] VITALS: BP 132/66
[2020-03-23] MEDS: CEFTAZIDIME PENTAHYDRATE 2 G in DEXT 5% WATER 100 ML IV SCH (04:44)
[2020-03-23 06:58] LABS: CHLORIDE 113 mEq/L (98-107)
[2020-03-23 07:35] LABS: HEMATOCRIT. 22.6 % (42.0-52.0); HEMOGLOBIN. 7.5 g/dL (14.0-18.0); MEAN CORPUSCULAR HEMOGLOBIN 30.3 pg (28.0-32.0); MEAN CORPUSCULAR VOLUME 91.5 fL (80.0-94.0); MEAN PLATELET VOLUME 7.9 fl (7.4-10.4); PLATELET 320 x1000/uL (130-400); RED BLOOD CELL COUNT 2.47 mill/uL (4.7-6.1); RED CELL DISTRIBUTION WIDTH 16.2 % (11.6-14.6)
[2020-03-23 07:57] VITALS: BP 133/68
[2020-03-23] MEDS: PREDNISONE 20MG TABLET PO SCH (09:30)
[2020-03-23] MEDS: AMLODIPINE 10MG TABLET PO SCH (09:30)
[2020-03-23] MEDS: TAMSULOSIN HCL 0.4MG SR CAPSULE PO SCH (09:30)
[2020-03-23 10:52] LABS: PLATELET ESTIMATE NORMAL
== END 2020-03-23 10:20 | disposition home or self-care (01) | DRG 871 ==
LOC: ER 01:30 → 7WST 05:22 → EDBEDREQSVC 05:35 → EDBEDREQTM 05:35 → EDBEDREQ 05:35 → ENRESERV 13:38 → 6WST 21:30
PROVIDERS: ADMIT Internal Medicine; ATTEND Internal Medicine
PROC: 5A09457 Assistance with Respiratory Ventilation, 24-96 Consecutive Hours, Continuous Positive Airway Pressure (ICD-10-PCS; 2020-03-19)
PROC: B5181ZA Fluoroscopy of Superior Vena Cava using Low Osmolar Contrast, Guidance (ICD-10-PCS; principal; 2020-03-22)
PROC: 02HV33Z Insertion of Infusion Device into Superior Vena Cava, Percutaneous Approach (ICD-10-PCS; 2020-03-22)
PROC: B548ZZA Ultrasonography of Superior Vena Cava, Guidance (ICD-10-PCS; 2020-03-22)
DX: A41.52 Sepsis due to Pseudomonas (principal); E43 Unspecified severe protein-calorie malnutrition; J69.0 Pneumonitis due to inhalation of food and vomit; I50.33 Acute on chronic diastolic (congestive) heart failure; E87.1 Hypo-osmolality and hyponatremia; I13.0 Hypertensive heart and chronic kidney disease with heart failure and stage 1 through stage 4 chronic kidney disease, or unspecified chronic kidney disease; N17.9 Acute kidney failure, unspecified; N39.0 Urinary tract infection, site not specified; J44.1 Chronic obstructive pulmonary disease with (acute) exacerbation; J44.0 Chronic obstructive pulmonary disease with (acute) lower respiratory infection; E87.2 Acidosis; F03.90 Unspecified dementia, unspecified severity, without behavioral disturbance, psychotic disturbance, mood disturbance, and anxiety; I27.20 Pulmonary hypertension, unspecified; M48.061 Spinal stenosis, lumbar region without neurogenic claudication; N18.9 Chronic kidney disease, unspecified; N40.0 Benign prostatic hyperplasia without lower urinary tract symptoms; D63.8 Anemia in other chronic diseases classified elsewhere; D64.9 Anemia, unspecified; R06.03 Acute respiratory distress; I25.10 Atherosclerotic heart disease of native coronary artery without angina pectoris; Z20.828 Contact with and (suspected) exposure to other viral communicable diseases; Z79.02 Long term (current) use of antithrombotics/antiplatelets; Z79.82 Long term (current) use of aspirin; Z86.73 Personal history of transient ischemic attack (TIA), and cerebral infarction without residual deficits; I25.2 Old myocardial infarction; Z79.899 Other long term (current) drug therapy; Z68.24 Body mass index [BMI] 24.0-24.9, adult; Z79.1 Long term (current) use of non-steroidal anti-inflammatories (NSAID); Z79.2 Long term (current) use of antibiotics; Z87.01 Personal history of pneumonia (recurrent)
CPT/HCPCS: 36415; 36573; 36600; 71045; 76937; 80048; 80053; 81003; 82140; 82375; 82550; 82728; 82805; 83605; 83615; 83880; 84145; 84484; 85025; 85379; 86140; 86850; 86900; 87077; 87186; 87635; 87804; 93005; 93306; 94640; 94660; 99291; C1725; J0696; J0713; J2543; J2920; J3370; J7060; J7512

== ENCOUNTER 2020-05-16 01:30 | Inpatient (IN) | payer BC, OTHER ==
[~2020-05-16] VITALS: Ht 182.9 cm; Wt 73.5 kg
[~2020-05-16 01:30] MED LIST changes: -AMOX1TAB15 MT; -P20 PO; +PRED10TA PO
[2020-05-16] MEDS ORDERED: ONDANSETRON HCL 4MG/2ML INJ IV STA (02:16)
[2020-05-16] MEDS ORDERED: PIPERACILLIN/TAZ 3.375G PREMIX 50 ML IV ONE (02:30)
[2020-05-16] MEDS ORDERED: SODIUM CHLORIDE 0.9% 1000ML BAG (SEPSIS BOLUS) IV ONE (02:30)
[2020-05-16 03:03] LABS: CLARITY URINE CLEAR (CLEAR); COLOR URINE YELLOW (YELLOW); KETONES URINE NEGATIVE (NEGATIVE); LEUKOCYTE ESTERASE URINE 3+ (NEGATIVE); NITRITE URINE NEGATIVE (NEGATIVE); OCCULT BLOOD URINE TRACE (NEGATIVE); PH URINE 5.5 (4.5-8.0); PROTEIN URINE 1+ (NEGATIVE); SPECIFIC GRAVITY URINE 1.012 (1.005-1.030); UROBILINOGEN URINE 0.2 E.U./dL (0.2-1.0)
[2020-05-16 03:05] LABS: BASOPHILS % 0.1 % (0.0-2.0); EOSINOPHILS % 0.5 % (0.0-5.0); HEMATOCRIT. 28.8 % (42.0-52.0); HEMOGLOBIN. 9.5 g/dL (14.0-18.0); LYMPHOCYTES % 17.6 % (20.0-50.0); MEAN CORPUSCULAR HEMOGLOBIN 30.1 pg (28.0-32.0); MEAN CORPUSCULAR VOLUME 91.1 fL (80.0-94.0); MONOCYTES % 9.4 % (2.0-8.0); NEUTROPHILS % 72.4 % (40.0-76.0); PLATELET 307 x1000/uL (130-400); RED BLOOD CELL COUNT 3.17 mill/uL (4.7-6.1); RED CELL DISTRIBUTION WIDTH 19.1 % (11.6-14.6)
[2020-05-16 03:08] LABS: CHLORIDE 113 mEq/L (98-107)
[2020-05-16 03:10] LABS: INR 1.2
[2020-05-16 22:00] VITALS: BP 182/95
[2020-05-16] MEDS ORDERED: HYDRALAZINE HCL 50MG TABLET PO SCH (22:00)
[2020-05-16] MEDS ORDERED: CLONIDINE 0.1MG TABLET PO PRN (23:00)
[2020-05-16] MEDS ORDERED: ACETAMINOPHEN 325MG TABLET PO PRN (23:00)
[2020-05-16] MEDS ORDERED: ONDANSETRON HCL 4MG/2ML INJ IV PRN (23:15)
[2020-05-16] MEDS ORDERED: IPRATROPIUM/ALBUTEROL 0.5-3(2.5)MG/3ML NEB NEB PRN (23:15)
[2020-05-16] MEDS ORDERED: ACETAMINOPHEN 650MG/20.3ML UDC GT PRN ×2 (23:15)
[2020-05-16] MEDS ORDERED: LORAZEPAM 2MG/ML CPJ IV PRN (23:15)
[2020-05-16] MEDS ORDERED: DIPHENHYDRAMINE 50MG/ML VIAL IV PRN (23:15)
[2020-05-16] MEDS ORDERED: VANCOMYCIN 1 G PREMIX 200 ML IV SCH (23:15)
[2020-05-16 23:26] LABS: BG BASE EXCESS -1.5 mmol/L (-2.0-2.0); BG CARBOXYHEMOGLOBIN 0.3 % (0.5-1.5); BG DEOXYHEMOGLOBIN 3.3 % (0.0-5.0); BG FRACTION INSPIRED OXYGEN 28; BG HCO3 ACT 23.7 mmol/L (22.0-26.0); BG METHEMOGLOBIN 0.3 % (0.0-1.5); BG OXYGEN SATURATION 96.7 % (92.0-98.5); BG OXYHEMOGLOBIN 96.1 % (94.0-97.0); BG PCO2 41.5 mmHg (35.0-45.0); BG PH 7.374 (7.350-7.450); BG SAMPLE SITE RIGHT RADIAL; BG TOTAL HEMOGLOBIN 11.8 g/dL (12.0-18.0); BG VENT MODE NASAL CANNULA
[2020-05-17] MEDS ORDERED: IPRATROPIUM/ALBUTEROL 0.5-3(2.5)MG/3ML NEB HHN SCH
[2020-05-17] MEDS ORDERED: DEXT 5%/0.45% NACL 1000ML 1,000 ML IV SCH
[2020-05-17] MEDS: METHYLPREDNISOLONE SOD SUCC 40 MG/ML VIAL IV SCH ×3 (00:02→23:09)
[2020-05-17 00:11] VITALS: BP 182/94
[2020-05-17] MEDS: HYDRALAZINE HCL 50MG TABLET GT SCH ×3 (00:36→16:58)
[2020-05-17] MEDS: CLONIDINE 0.1MG TABLET GT PRN (00:37)
[2020-05-17] MEDS ORDERED: CEFEPIME 1,000 MG in DEXTROSE 5% WATER 50 ML IV SCH (01:00)
[2020-05-17] MEDS: IPRATROPIUM/ALBUTEROL 0.5-3(2.5)MG/3ML NEB HHN SCH ×4 (01:37→21:50)
[2020-05-17] MEDS ORDERED: VANCOMYCIN 1250MG in DEXTROSE 5% WATER 250ML IV NR (02:00)
[2020-05-17 04:00] VITALS: BP 147/79
[2020-05-17] MEDS ORDERED: PIPERACILLIN/TAZOBACTAM 3.375 G/VIAL IV SCH (06:00)
[2020-05-17] MEDS: NITROGLYCERIN OINT 1GM/INCH UDPKT TD SCH ×2 (06:06→22:05)
[2020-05-17 06:32] LABS: HEMOGLOBIN. 9.6 g/dL (14.0-18.0); MEAN CORPUSCULAR HEMOGLOBIN 30.1 pg (28.0-32.0); MEAN CORPUSCULAR VOLUME 90.8 fL (80.0-94.0); MEAN PLATELET VOLUME 8.7 fl (7.4-10.4); PLATELET 320 x1000/uL (130-400); RED CELL DISTRIBUTION WIDTH 18.3 % (11.6-14.6)
[2020-05-17] MEDS ORDERED: PANTOPRAZOLE 40MG DR TABLET PO SCH (07:20)
[2020-05-17 08:00] VITALS: BP 161/79
[2020-05-17] MEDS: ENOXAPARIN 40MG/0.4ML SYR SUBCUT SCH (08:54)
[2020-05-17] MEDS: FAMOTIDINE 20MG TABLET GT SCH (08:54)
[2020-05-17] MEDS: AMLODIPINE 5MG TABLET GT SCH ×2 (08:55→22:01)
[2020-05-17] MEDS ORDERED: ENOXAPARIN 40MG/0.4ML SYR SUBCUT SCH (09:00)
[2020-05-17] MEDS ORDERED: CEFEPIME HCL 1000MG/VIAL INJ IM SCH (09:00)
[2020-05-17 12:00] VITALS: BP 152/68
[2020-05-17 13:56] LABS: PLATELET ESTIMATE NORMAL
[2020-05-17 16:00] VITALS: BP 150/67
[2020-05-17] MEDS ORDERED: NYSTATIN POWDER 15GM TOP SCH (17:00)
[2020-05-17 20:36] VITALS: BP 178/89
[2020-05-17] MEDS ORDERED: VANCOMYCIN 750 MG PREMIX 150 ML IV SCH (21:00)
[2020-05-17] MEDS: CEFEPIME 1,000 MG in DEXTROSE 5% WATER 50 ML IV SCH (22:03)
[2020-05-17] MEDS: NYSTATIN POWDER 15GM TOP SCH (22:05)
[2020-05-17] MEDS: LINEZOLID 600 MG PREMIX 300 ML IV SCH (22:54)
[2020-05-18 00:40] VITALS: BP 179/75
[2020-05-18] MEDS: HYDRALAZINE HCL 50MG TABLET GT SCH ×3 (00:46→16:25)
[2020-05-18] MEDS: CLONIDINE 0.1MG TABLET GT PRN ×3 (00:47→08:29)
[2020-05-18] MEDS: IPRATROPIUM/ALBUTEROL 0.5-3(2.5)MG/3ML NEB HHN SCH ×4 (02:15→21:52)
[2020-05-18 04:00] VITALS: BP 162/69
[2020-05-18] MEDS ORDERED: VANCOMYCIN 1 G PREMIX 200 ML IV SCH (06:00)
[2020-05-18] MEDS: NITROGLYCERIN OINT 1GM/INCH UDPKT TD SCH ×3 (06:18→21:16)
[2020-05-18] MEDS: CEFEPIME 1,000 MG in DEXTROSE 5% WATER 50 ML IV SCH ×2 (08:28→20:49)
[2020-05-18] MEDS: AMLODIPINE 5MG TABLET GT SCH ×2 (08:28→20:49)
[2020-05-18] MEDS: FAMOTIDINE 20MG TABLET GT SCH (08:28)
[2020-05-18] MEDS: ENOXAPARIN 40MG/0.4ML SYR SUBCUT SCH (08:30)
[2020-05-18 08:44] VITALS: BP 195/83
[2020-05-18] MEDS: LINEZOLID 600 MG PREMIX 300 ML IV SCH ×2 (10:24→21:36)
[2020-05-18] MEDS: METHYLPREDNISOLONE SOD SUCC 40 MG/ML VIAL IV SCH ×2 (10:26→22:27)
[2020-05-18 12:40] VITALS: BP 145/70
[2020-05-18] MEDS: NYSTATIN POWDER 15GM TOP SCH ×2 (13:06→20:50)
[2020-05-18 15:57] LABS: HEMATOCRIT. 28.7 % (42.0-52.0); HEMOGLOBIN. 9.4 g/dL (14.0-18.0); MEAN CORPUSCULAR HEMOGLOBIN 30.2 pg (28.0-32.0); MEAN PLATELET VOLUME 9.3 fl (7.4-10.4); PLATELET 283 x1000/uL (130-400); RED BLOOD CELL COUNT 3.12 mill/uL (4.7-6.1); RED CELL DISTRIBUTION WIDTH 18.5 % (11.6-14.6)
[2020-05-18 16:11] LABS: CHLORIDE 113 mEq/L (98-107)
[2020-05-18 16:28] VITALS: BP 153/67
[2020-05-18 16:55] LABS: PLATELET ESTIMATE NORMAL
[2020-05-18 20:08] VITALS: BP 141/73
[2020-05-19 00:15] VITALS: BP 151/76
[2020-05-19] MEDS: HYDRALAZINE HCL 50MG TABLET GT SCH ×3 (00:18→17:15)
[2020-05-19] MEDS: IPRATROPIUM/ALBUTEROL 0.5-3(2.5)MG/3ML NEB HHN SCH ×4 (02:19→21:30)
[2020-05-19 04:00] VITALS: BP 150/75
[2020-05-19] MEDS: NITROGLYCERIN OINT 1GM/INCH UDPKT TD SCH ×3 (05:39→21:21)
[2020-05-19 08:57] VITALS: BP 159/76
[2020-05-19] MEDS: ENOXAPARIN 40MG/0.4ML SYR SUBCUT SCH (09:21)
[2020-05-19] MEDS: NYSTATIN POWDER 15GM TOP SCH ×2 (09:21→21:54)
[2020-05-19] MEDS: AMLODIPINE 5MG TABLET GT SCH ×2 (09:21→21:20)
[2020-05-19] MEDS: CEFEPIME 1,000 MG in DEXTROSE 5% WATER 50 ML IV SCH ×2 (09:21→21:20)
[2020-05-19] MEDS: FAMOTIDINE 20MG TABLET GT SCH (09:45)
[2020-05-19] MEDS: METHYLPREDNISOLONE SOD SUCC 40 MG/ML VIAL IV SCH (11:29)
[2020-05-19] MEDS: LINEZOLID 600 MG PREMIX 300 ML IV SCH ×2 (11:29→21:21)
[2020-05-19 12:27] VITALS: BP 121/67
[2020-05-19] MEDS ORDERED: AMOX1TAB49 MT (15:24)
[2020-05-19] MEDS ORDERED: LINE600T11 MT (15:24)
[2020-05-19 16:06] VITALS: BP 97/56
[2020-05-19 20:24] VITALS: BP 154/72
[2020-05-20] VITALS (7 sets, daily range): BP systolic 152–167; BP diastolic 74–91
[2020-05-20] MEDS: HYDRALAZINE HCL 50MG TABLET GT SCH ×3 (00:31→18:20)
[2020-05-20] MEDS: CLONIDINE 0.1MG TABLET GT PRN (00:31)
[2020-05-20] MEDS: METHYLPREDNISOLONE SOD SUCC 40 MG/ML VIAL IV SCH ×2 (00:31→08:38)
[2020-05-20] MEDS: IPRATROPIUM/ALBUTEROL 0.5-3(2.5)MG/3ML NEB HHN SCH ×3 (02:37→15:49)
[2020-05-20] MEDS: NITROGLYCERIN OINT 1GM/INCH UDPKT TD SCH ×2 (06:14→14:29)
[2020-05-20] MEDS: AMLODIPINE 5MG TABLET GT SCH (08:36)
[2020-05-20] MEDS: CEFEPIME 1,000 MG in DEXTROSE 5% WATER 50 ML IV SCH (08:36)
[2020-05-20] MEDS: LINEZOLID 600 MG PREMIX 300 ML IV SCH (08:36)
[2020-05-20] MEDS: FAMOTIDINE 20MG TABLET GT SCH (08:36)
[2020-05-20] MEDS: NYSTATIN POWDER 15GM TOP SCH (08:38)
[2020-05-20] MEDS: ENOXAPARIN 40MG/0.4ML SYR SUBCUT SCH (08:38)
[2020-05-20] MEDS ORDERED: CLONIDINE 0.1MG TABLET PO NR (14:15)
== END 2020-05-20 18:40 | disposition home or self-care (01) | DRG 871 ==
LOC: ER 01:30 → 6WST 05:47 → EDBEDREQSVC 05:55 → EDBEDREQTM 05:55 → EDBEDREQ 05:55 → ENRESERV 19:41
PROVIDERS: ADMIT Internal Medicine; ATTEND Internal Medicine
DX: A41.81 Sepsis due to Enterococcus (principal); J69.0 Pneumonitis due to inhalation of food and vomit; I50.33 Acute on chronic diastolic (congestive) heart failure; I13.0 Hypertensive heart and chronic kidney disease with heart failure and stage 1 through stage 4 chronic kidney disease, or unspecified chronic kidney disease; N17.9 Acute kidney failure, unspecified; N39.0 Urinary tract infection, site not specified; J96.11 Chronic respiratory failure with hypoxia; J44.1 Chronic obstructive pulmonary disease with (acute) exacerbation; J44.0 Chronic obstructive pulmonary disease with (acute) lower respiratory infection; Z16.21 Resistance to vancomycin; D64.9 Anemia, unspecified; F03.90 Unspecified dementia, unspecified severity, without behavioral disturbance, psychotic disturbance, mood disturbance, and anxiety; I25.10 Atherosclerotic heart disease of native coronary artery without angina pectoris; I27.20 Pulmonary hypertension, unspecified; J44.9 Chronic obstructive pulmonary disease, unspecified; N18.9 Chronic kidney disease, unspecified; M48.061 Spinal stenosis, lumbar region without neurogenic claudication; C61 Malignant neoplasm of prostate; J45.909 Unspecified asthma, uncomplicated; N40.0 Benign prostatic hyperplasia without lower urinary tract symptoms; Z79.02 Long term (current) use of antithrombotics/antiplatelets; Z87.01 Personal history of pneumonia (recurrent); Z79.82 Long term (current) use of aspirin; I25.2 Old myocardial infarction; Z79.899 Other long term (current) drug therapy; Z86.73 Personal history of transient ischemic attack (TIA), and cerebral infarction without residual deficits; Z93.1 Gastrostomy status; Z88.8 Allergy status to other drugs, medicaments and biological substances
CPT/HCPCS: 36415; 36600; 71045; 80048; 80053; 81003; 82375; 82805; 83605; 84145; 84153; 84484; 85025; 87077; 87106; 87186; 93005; 96365; 99285; J0692; J1650; J2020; J2405; J2543; J2920; J3370; J7030; J7060; G0103

== ENCOUNTER 2020-06-03 02:34 | Emergency (ER) | payer BC, OTHER ==
[~2020-06-03] VITALS: Ht 175.3 cm; Wt 65.0 kg
[~2020-06-03 02:34] MED LIST changes: +AMOX1TAB49 MT; +LINE600T11 MT
[2020-06-03 03:51] LABS: BASOPHILS % 0.4 % (0.0-2.0); EOSINOPHILS % 0.9 % (0.0-5.0); HEMATOCRIT. 23.7 % (42.0-52.0); HEMOGLOBIN. 8.1 g/dL (14.0-18.0); LYMPHOCYTES % 13.3 % (20.0-50.0); MEAN CORPUSCULAR HEMOGLOBIN 31.1 pg (28.0-32.0); MEAN CORPUSCULAR VOLUME 91.1 fL (80.0-94.0); MEAN PLATELET VOLUME 7.8 fl (7.4-10.4); MONOCYTES % 8.9 % (2.0-8.0); NEUTROPHILS % 76.5 % (40.0-76.0); PLATELET 124 x1000/uL (130-400); RED CELL DISTRIBUTION WIDTH 18.3 % (11.6-14.6)
[2020-06-03 03:58] LABS: CHLORIDE 98 mEq/L (98-107)
[2020-06-03 05:34] LABS: CLARITY URINE CLOUDY (CLEAR); COLOR URINE YELLOW (YELLOW); KETONES URINE NEGATIVE (NEGATIVE); LEUKOCYTE ESTERASE URINE 3+ (NEGATIVE); NITRITE URINE NEGATIVE (NEGATIVE); OCCULT BLOOD URINE 2+ (NEGATIVE); PROTEIN URINE 1+ (NEGATIVE); SPECIFIC GRAVITY URINE 1.011 (1.005-1.030); UROBILINOGEN URINE 0.2 E.U./dL (0.2-1.0)
[2020-06-03 11:29] VITALS: BP 139/82
== END 2020-06-03 11:50 | disposition home or self-care (01) ==
LOC: ER 02:34
DX: R50.9 Fever, unspecified (principal); D64.9 Anemia, unspecified; N30.20 Other chronic cystitis without hematuria; I10 Essential (primary) hypertension; I69.398 Other sequelae of cerebral infarction; J44.9 Chronic obstructive pulmonary disease, unspecified; Z88.1 Allergy status to other antibiotic agents; Z79.899 Other long term (current) drug therapy; Z79.52 Long term (current) use of systemic steroids
CPT/HCPCS: 36415; 71045; 80053; 81003; 83605; 84145; 85025; 93005; 99285

== ENCOUNTER 2020-10-07 19:58 | Inpatient (IN) | payer BC, MEDICAID ==
[~2020-10-07] VITALS: Ht 167.6 cm; Wt 67.1 kg
[~2020-10-07 19:58] MED LIST changes: +ASCO500C15 PO; +FURO40TA5 PO; -LINE600T11 MT; +LISI40TA13 PO; +METH1TAB33 MT; -PRED10TA PO
[2020-10-07] MEDS ORDERED: ACETAMINOPHEN 325MG TABLET PO STA (20:32)
[2020-10-07] MEDS ORDERED: SODIUM CHLORIDE 0.9% 1000ML BAG (SEPSIS BOLUS) IV ONE (20:45)
[2020-10-07 21:00] LABS: BG BASE EXCESS 2.6 mmol/L (-2.0-2.0); BG CARBOXYHEMOGLOBIN 0.3 % (0.5-1.5); BG DEOXYHEMOGLOBIN 2.3 % (0.0-5.0); BG FRACTION INSPIRED OXYGEN 32; BG HCO3 ACT 25.5 mmol/L (22.0-26.0); BG METHEMOGLOBIN 0.3 % (0.0-1.5); BG OXYGEN SATURATION 97.7 % (92.0-98.5); BG OXYHEMOGLOBIN 97.1 % (94.0-97.0); BG PCO2 33.1 mmHg (35.0-45.0); BG PH 7.504 (7.350-7.450); BG PO2 98.7 mmHg (75.0-100.0); BG SAMPLE SITE RIGHT FEMORAL; BG TOTAL HEMOGLOBIN 10.9 g/dL (12.0-18.0); BG VENT MODE NASAL CANNULA
[2020-10-07] MEDS ORDERED: PIPERACILLIN/TAZ 3.375G PREMIX 50 ML IV ONE (21:00)
[2020-10-07 23:10] LABS: CLARITY URINE TURBID (CLEAR); COLOR URINE YELLOW (YELLOW); KETONES URINE NEGATIVE (NEGATIVE); LEUKOCYTE ESTERASE URINE 3+ (NEGATIVE); NITRITE URINE POSITIVE (NEGATIVE); OCCULT BLOOD URINE 2+ (NEGATIVE); PROTEIN URINE 1+ (NEGATIVE); SPECIFIC GRAVITY URINE 1.009 (1.005-1.030); UROBILINOGEN URINE 0.2 E.U./dL (0.2-1.0)
[2020-10-07 23:53] LABS: HEMATOCRIT. 25.5 % (42.0-52.0); HEMOGLOBIN. 8.6 g/dL (14.0-18.0); MEAN CORPUSCULAR HEMOGLOBIN 30.4 pg (28.0-32.0); MEAN CORPUSCULAR VOLUME 90.4 fL (80.0-94.0); MEAN PLATELET VOLUME 7.5 fl (7.4-10.4); PLATELET 283 x1000/uL (130-400); RED BLOOD CELL COUNT 2.82 mill/uL (4.7-6.1); RED CELL DISTRIBUTION WIDTH 15.2 % (11.6-14.6)
[2020-10-08 00:03] LABS: CHLORIDE 101 mEq/L (98-107); INR 1.3; PROTHROMBIN TIME 13.6 sec (9.6-11.0)
[2020-10-08] MEDS: SODIUM CHLORIDE 0.45% 1,000 ML IV SCH ×2 (05:24→13:00)
[2020-10-08] MEDS: ACETAMINOPHEN 650MG SUPP PR PRN ×2 (05:25→18:16)
[2020-10-08] MEDS: CLONIDINE 0.1MG TABLET PO PRN (05:33)
[2020-10-08] MEDS ORDERED: VANCOMYCIN 1250MG in DEXTROSE 5% WATER 250ML IV SCH (06:00)
[2020-10-08 06:08] LABS: PLATELET ESTIMATE NORMAL
[2020-10-08] MEDS ORDERED: MEROPENEM 1,000 MG in SODIUM CHLORIDE 0.9% 100 ML IV SCH (07:00)
[2020-10-08] MEDS: PANTOPRAZOLE SODIUM 40 MG/VIAL IV SCH (10:04)
[2020-10-08 12:10] VITALS: BP 135/90
[2020-10-08] MEDS ORDERED: FUROSEMIDE 40MG/4ML VIAL IVP NR (14:30)
[2020-10-08] MEDS: METHYLPREDNISOLONE SOD SUCC 40 MG/ML VIAL IV SCH ×2 (14:30→21:30)
[2020-10-08 14:50] LABS: BG BASE EXCESS -3.5 mmol/L (-2.0-2.0); BG CARBOXYHEMOGLOBIN 0.2 % (0.5-1.5); BG DEOXYHEMOGLOBIN 2.1 % (0.0-5.0); BG HCO3 ACT 20.7 mmol/L (22.0-26.0); BG METHEMOGLOBIN 0.4 % (0.0-1.5); BG OXYGEN SATURATION 97.9 % (92.0-98.5); BG OXYHEMOGLOBIN 97.3 % (94.0-97.0); BG PCO2 34.2 mmHg (35.0-45.0); BG PO2 114.1 mmHg (75.0-100.0); BG SAMPLE SITE RIGHT RADIAL; BG TOTAL HEMOGLOBIN 10.3 g/dL (12.0-18.0); BG VENT MODE NASAL CANNULA
[2020-10-08] MEDS ORDERED: HYDROCODONE/ACETAMINOPHEN 5/325MG TABLET PO PRN (15:45)
[2020-10-08 16:00] VITALS: BP 93/61
[2020-10-08] MEDS: ALBUTEROL 6.7GM HFA INHALER ORI SCH (18:00)
[2020-10-08 20:00] VITALS: BP 99/59
[2020-10-08] MEDS: MEROPENEM 1,000 MG in SODIUM CHLORIDE 0.9% 100 ML IV SCH (21:27)
[2020-10-09] MEDS: ALBUTEROL 6.7GM HFA INHALER ORI SCH ×3 (01:10→10:00)
[2020-10-09] MEDS ORDERED: VANCOMYCIN 1 G PREMIX 200 ML IV SCH (06:00)
[2020-10-09] MEDS: METHYLPREDNISOLONE SOD SUCC 40 MG/ML VIAL IV SCH ×2 (06:16→17:51)
[2020-10-09] MEDS: PANTOPRAZOLE SODIUM 40 MG/VIAL IV SCH (08:49)
[2020-10-09] MEDS: MEROPENEM 1,000 MG in SODIUM CHLORIDE 0.9% 100 ML IV SCH ×2 (08:50→20:49)
[2020-10-09 09:43] LABS: HEMATOCRIT. 28.6 % (42.0-52.0); HEMOGLOBIN. 9.4 g/dL (14.0-18.0); MEAN CORPUSCULAR HEMOGLOBIN 30.3 pg (28.0-32.0); MEAN CORPUSCULAR VOLUME 91.6 fL (80.0-94.0); PLATELET 278 x1000/uL (130-400); RED BLOOD CELL COUNT 3.12 mill/uL (4.7-6.1)
[2020-10-09] MEDS: VANCOMYCIN 750 MG PREMIX 150 ML IV SCH (12:24)
[2020-10-09] MEDS ORDERED: HYDRALAZINE 20MG/ML VIAL IV PRN (12:30)
[2020-10-09] MEDS ORDERED: LACTULOSE 20G/30ML UDC PO PRN (12:30)
[2020-10-09 12:42] VITALS: BP 112/49
[2020-10-09] MEDS: IPRATROPIUM/ALBUTEROL 0.5-3(2.5)MG/3ML NEB HHN SCH ×2 (15:53→21:40)
[2020-10-09] MEDS: SODIUM CHLORIDE 0.45% 1,000 ML IV SCH (17:57)
[2020-10-09 20:00] VITALS: BP 144/79
[2020-10-09 21:59] LABS: PLATELET ESTIMATE NORMAL
[2020-10-10] VITALS: BP 138/80
[2020-10-10] MEDS: IPRATROPIUM/ALBUTEROL 0.5-3(2.5)MG/3ML NEB HHN SCH ×4 (03:29→21:41)
[2020-10-10 04:00] VITALS: BP 191/78
[2020-10-10] MEDS: METHYLPREDNISOLONE SOD SUCC 40 MG/ML VIAL IV SCH ×2 (06:11→18:57)
[2020-10-10 07:56] VITALS: BP 164/91
[2020-10-10 09:24] LABS: HEMATOCRIT. 25.9 % (42.0-52.0); HEMOGLOBIN. 8.7 g/dL (14.0-18.0); MEAN CORPUSCULAR HEMOGLOBIN 30.6 pg (28.0-32.0); MEAN CORPUSCULAR VOLUME 91.2 fL (80.0-94.0); MEAN PLATELET VOLUME 8.6 fl (7.4-10.4); PLATELET 272 x1000/uL (130-400); RED BLOOD CELL COUNT 2.84 mill/uL (4.7-6.1); RED CELL DISTRIBUTION WIDTH 16.1 % (11.6-14.6)
[2020-10-10] MEDS: PANTOPRAZOLE SODIUM 40 MG/VIAL IV SCH (10:01)
[2020-10-10] MEDS: MEROPENEM 1,000 MG in SODIUM CHLORIDE 0.9% 100 ML IV SCH ×2 (10:01→21:36)
[2020-10-10] MEDS: VANCOMYCIN 750 MG PREMIX 150 ML IV SCH (12:09)
[2020-10-10 12:16] VITALS: BP 125/65
[2020-10-10 16:46] VITALS: BP 130/72
[2020-10-10] MEDS: SODIUM CHLORIDE 0.45% 1,000 ML IV SCH (18:58)
[2020-10-10 20:00] VITALS: BP 135/73
[2020-10-10 21:00] LABS: PLATELET ESTIMATE NORMAL
[2020-10-11] VITALS (7 sets, daily range): BP systolic 120–172; BP diastolic 63–93
[2020-10-11] MEDS: IPRATROPIUM/ALBUTEROL 0.5-3(2.5)MG/3ML NEB HHN SCH ×4 (02:53→20:23)
[2020-10-11] MEDS: CLONIDINE 0.1MG TABLET PO PRN (06:05)
[2020-10-11] MEDS: METHYLPREDNISOLONE SOD SUCC 40 MG/ML VIAL IV SCH ×2 (06:05→18:00)
[2020-10-11] MEDS: SODIUM CHLORIDE 0.45% 1,000 ML IV SCH ×2 (06:07→21:28)
[2020-10-11 06:48] LABS: HEMATOCRIT. 27.8 % (42.0-52.0); MEAN CORPUSCULAR HEMOGLOBIN 29.7 pg (28.0-32.0); MEAN CORPUSCULAR VOLUME 91.8 fL (80.0-94.0); MEAN PLATELET VOLUME 9.2 fl (7.4-10.4); PLATELET 260 x1000/uL (130-400); RED BLOOD CELL COUNT 3.02 mill/uL (4.7-6.1); RED CELL DISTRIBUTION WIDTH 16.1 % (11.6-14.6)
[2020-10-11] MEDS: MEROPENEM 1,000 MG in SODIUM CHLORIDE 0.9% 100 ML IV SCH ×2 (08:37→20:00)
[2020-10-11] MEDS: PANTOPRAZOLE SODIUM 40 MG/VIAL IV SCH (08:37)
[2020-10-11 12:59] LABS: PLATELET ESTIMATE NORMAL
[2020-10-12] VITALS: BP 127/68
[2020-10-12] MEDS: IPRATROPIUM/ALBUTEROL 0.5-3(2.5)MG/3ML NEB HHN SCH ×3 (01:23→13:23)
[2020-10-12 04:00] VITALS: BP 135/75
[2020-10-12] MEDS: METHYLPREDNISOLONE SOD SUCC 40 MG/ML VIAL IV SCH (05:37)
[2020-10-12] MEDS ORDERED: VANCOMYCIN 750 MG PREMIX 150 ML IV SCH ×2 (06:00→15:00)
[2020-10-12 07:32] LABS: CHLORIDE 108 mEq/L (98-107)
[2020-10-12 07:36] LABS: HEMATOCRIT. 25.5 % (42.0-52.0); HEMOGLOBIN. 8.6 g/dL (14.0-18.0); MEAN PLATELET VOLUME 8.7 fl (7.4-10.4); PLATELET 248 x1000/uL (130-400); RED BLOOD CELL COUNT 2.77 mill/uL (4.7-6.1); RED CELL DISTRIBUTION WIDTH 15.8 % (11.6-14.6)
[2020-10-12 08:00] VITALS: BP 168/94
[2020-10-12] MEDS: MEROPENEM 1,000 MG in SODIUM CHLORIDE 0.9% 100 ML IV SCH ×2 (08:00→21:31)
[2020-10-12] MEDS: FAMOTIDINE 20MG/2ML VIAL IV SCH (09:00)
[2020-10-12 12:00] VITALS: BP 144/86
[2020-10-12] MEDS ORDERED: LIDOCAINE HCL 1% 20ML VIAL (Pyxis) INJ ONE (12:53)
[2020-10-12] MEDS: SODIUM CHLORIDE 0.45% 1,000 ML IV SCH (14:56)
[2020-10-12 16:00] VITALS: BP 154/82
[2020-10-12 16:59] LABS: PLATELET ESTIMATE NORMAL
[2020-10-12 20:00] VITALS: BP 141/83
[2020-10-13] VITALS: BP 149/86
[2020-10-13] MEDS: IPRATROPIUM/ALBUTEROL 0.5-3(2.5)MG/3ML NEB HHN SCH ×3 (02:42→12:31)
[2020-10-13 04:00] VITALS: BP 134/80
[2020-10-13] MEDS: SODIUM CHLORIDE 0.45% 1,000 ML IV SCH (06:22)
[2020-10-13 08:02] VITALS: BP 149/85
[2020-10-13] MEDS: FAMOTIDINE 20MG/2ML VIAL IV SCH (08:48)
[2020-10-13] MEDS ORDERED: METHYLPREDNISOLONE SOD SUCC 40 MG/ML VIAL IV SCH (09:00)
[2020-10-13 09:23] LABS: BASOPHILS % 0.4 % (0.0-2.0); EOSINOPHILS % 0.3 % (0.0-5.0); HEMATOCRIT. 28.2 % (42.0-52.0); HEMOGLOBIN. 9.8 g/dL (14.0-18.0); LYMPHOCYTES % 12.7 % (20.0-50.0); MEAN CORPUSCULAR HEMOGLOBIN 31.2 pg (28.0-32.0); MEAN CORPUSCULAR VOLUME 90.2 fL (80.0-94.0); MEAN PLATELET VOLUME 8.8 fl (7.4-10.4); MONOCYTES % 9.2 % (2.0-8.0); NEUTROPHILS % 77.4 % (40.0-76.0); PLATELET 244 x1000/uL (130-400); RED BLOOD CELL COUNT 3.13 mill/uL (4.7-6.1); RED CELL DISTRIBUTION WIDTH 15.9 % (11.6-14.6)
[2020-10-13 09:37] LABS: CHLORIDE 111 mEq/L (98-107)
[2020-10-13] MEDS: MEROPENEM 1,000 MG in SODIUM CHLORIDE 0.9% 100 ML IV SCH (09:50)
[2020-10-13 12:03] VITALS: BP 147/75
[2020-10-13 15:37] VITALS: BP 132/87
[2020-10-13 18:29] VITALS: BP 146/74
== END 2020-10-13 20:00 | disposition home health service (06) | DRG 871 ==
LOC: ER 19:58 → 7WST 23:12 → EDBEDREQ 23:14 → EDBEDREQTM 23:14 → ENRESERV 10-08 → CANRESERV 10-08 → ENRESERV 10-08 11:23 → 6WST 10-09 02:28
PROVIDERS: ADMIT Internal Medicine; ATTEND Internal Medicine
PROC: B5181ZA Fluoroscopy of Superior Vena Cava using Low Osmolar Contrast, Guidance (ICD-10-PCS; principal; 2020-10-12)
PROC: 02HV33Z Insertion of Infusion Device into Superior Vena Cava, Percutaneous Approach (ICD-10-PCS; 2020-10-12)
PROC: B548ZZA Ultrasonography of Superior Vena Cava, Guidance (ICD-10-PCS; 2020-10-12)
DX: A41.52 Sepsis due to Pseudomonas (principal); J18.9 Pneumonia, unspecified organism; I50.33 Acute on chronic diastolic (congestive) heart failure; I13.0 Hypertensive heart and chronic kidney disease with heart failure and stage 1 through stage 4 chronic kidney disease, or unspecified chronic kidney disease; N39.0 Urinary tract infection, site not specified; J44.0 Chronic obstructive pulmonary disease with (acute) lower respiratory infection; J44.1 Chronic obstructive pulmonary disease with (acute) exacerbation; R06.03 Acute respiratory distress; E11.22 Type 2 diabetes mellitus with diabetic chronic kidney disease; I27.20 Pulmonary hypertension, unspecified; N40.0 Benign prostatic hyperplasia without lower urinary tract symptoms; N18.9 Chronic kidney disease, unspecified; Z86.73 Personal history of transient ischemic attack (TIA), and cerebral infarction without residual deficits; D64.9 Anemia, unspecified; F03.90 Unspecified dementia, unspecified severity, without behavioral disturbance, psychotic disturbance, mood disturbance, and anxiety; Z20.822 Contact with and (suspected) exposure to COVID-19; Z79.02 Long term (current) use of antithrombotics/antiplatelets; Z79.82 Long term (current) use of aspirin; Z79.899 Other long term (current) drug therapy; Z74.01 Bed confinement status; Z88.1 Allergy status to other antibiotic agents
CPT/HCPCS: 36415; 36573; 36600; 71045; 74176; 80048; 80053; 80202; 81003; 82375; 82805; 82962; 83605; 84145; 84153; 84484; 85025; 87077; 87186; 93005; 93306; 93970; 94640; 94660; 99291; C1725; C1893; C9113; J2185; J2543; J2920; J3370; J3490; J7030; J7050; J7060; U0003; G0103